=== PATIENT | female | born 1950 | race Caucasian/White ===

== ENCOUNTER 2017-05-27 19:46 | Observation (INO) ==
[2017-05-27 20:14] LABS: Basophils # 0.1 K/mcL (0.0-0.2); Basophils % 1.1 %; Eosinophils # 0.7 K/mcL (0.0-0.6); Eosinophils % 9.1 %; Hematocrit 37.2 % (35.3-44.9); Hemoglobin 11.9 g/dL (11.5-15.4); Immature Granulocytes % 0.1 % (0-4); Lymphocytes # 2.4 K/mcL (0.6-4.6); Lymphocytes % 34.1 %; Mean Corpuscular Hemoglobin 29.1 pg (28.0-33.3); Mean Platelet Volume 8.9 fL (9.4-12.4); Monocytes # 0.7 K/mcL (0.0-1.3); Monocytes % 9.8 %; Neutrophils # 3.3 K/mcL (1.6-8.9); Platelet Count 331 K/mcL (140-400); Red Blood Count 4.09 M/mcL (3.82-4.97); Red Cell Distribution Width 11.7 % (11.5-14.5); Segmented Neutrophils % 45.8 %
--- NOTE | 2017-05-27 20:17 | Emergency Department Note ---
Disposition Clinical Impression: Elevated troponin Dyspnea Qualifiers: Dyspnea type: shortness of breath Qualified Code(s): R06.02 - Shortness of breath Back pain Qualifiers: Back pain location: thoracic back pain Chronicity: acute Back pain laterality: midline Qualified Code(s): M54.6 - Pain in thoracic spine Disposition: Admitted As Inpatient Condition: Good SOB HPI - General Chief Complaint: ED Shortness of Breath/Dyspnea Stated Complaint: Back pain, SOB,facial numbness Time Seen by Provider: 05/27/17 19:52 Source: patient, EMS Mode of arrival: EMS Limitations: no limitations Nursing Notes Reviewed: Yes Vital Signs Reviewed: Yes - History of Present Illness 66-year-old female with history of hypertension, hyperlipidemia who presents to the ER with a chief complaint of back pain and shortness of breath. Patient reports that 15 minutes prior to arrival she developed stabbing back pain. She states she also felt short of breath during that time. She also felt right sided facial numbness. Patient called EMS and was brought for evaluation. She reports that within the last month she was seen for similar symptoms thought to be strokelike and was transferred to [facility]. She states that they told her she did not have a stroke but she had a left heart catheterization as well saying that "the bottom of her heart was abnormal". She denies any stent placement at that time. They did place her on aspirin. Patient denies any chest pain at this time. She denies nausea vomiting diarrhea. No history of cardiac stents, DVT or PE. Pt Subjective Complaint: shortness of breath Onset (ago): Just [employer] Severity: moderate Consistency/Duration: constant Improves with: nothing Worsens with: nothing Associated symptoms: Denies: chest pain, fever, cough, nausea/vomiting, syncope , abdominal pain Treatment prior to arrival: none Cough present: No Sputum production: No Sputum Amount: None - Related Data Home oxygen amount: none Home Medications Medication Instructions Recorded Confirmed Alprazolam [Xanax] 1 mg PO TID PRN 06/03/15 05/27/17 Cozaar 100 mg PO DAILY 06/03/15 05/27/17 Lexapro 10 mg PO DAILY 06/03/15 05/27/17 OxyCODONE/APAP 10/325 [Percocet 10 - 325 mg PO Q6H PRN 06/03/15 05/27/17 10/325] Aspirin [Lo-Dose Aspirin EC] 81 mg PO DAILY 05/27/17 05/27/17 Atorvastatin [Lipitor] 40 mg PO HS 05/27/17 05/27/17 Carvedilol 12.5 mg PO BID 05/27/17 05/27/17 Cyclobenzaprine [Flexeril] 10 mg PO TID 05/27/17 05/27/17 Previous Rx's Medication Instructions Recorded Fluticasone Propionate Nasal 2 spray NS DAILY #1 bottle 06/04/15 [Flonase] Allergies Allergy/AdvReac Type Severity Reaction Status Date / Time clarithromycin [From Biaxin] Allergy Hives Verified 06/03/15 20:34 diphenhydramine Allergy Hives Verified 06/03/15 20:34 [From Benadryl] methylprednisolone Allergy Hives Verified 06/03/15 20:34 [From Medrol] promethazine [From Phenergan] Allergy Hives Verified 06/03/15 20:34 sulfamethoxazole Allergy Hives Verified 06/03/15 20:34 [From Bactrim] trimethoprim [From Bactrim] Allergy Hives Verified 06/03/15 20:34 All systems ED: reviewed and negative except as stated. Constitutional: Denies: fever Cardiovascular: Denies: chest pain Respiratory: Reports: dyspnea. Denies: cough, wheezes Gastrointestinal: Denies: abdominal pain, nausea, vomiting, diarrhea Musculoskeletal: Reports: back pain. Denies: neck pain Past Medical History - Past Medical History Attestation: Yes The following information was validated with the patient. Source: patient Medical history: Reports: CHF, COPD, hypertension Surgical history: Reports: orthopedic, other, other Psychiatric history: Reports: anxiety [employer] history: Reports: no [employer] history - Social History Smoking Status: Current every day smoker Smokeless Tobacco Status: No Alcohol use: Reports: occasionally Drug use: Reports: none Physical Exam - General Limitations: no limitations General appearance: alert, in no apparent distress - Head Head exam: atraumatic, normocephalic, normal inspection - Eye Eye exam: Present: normal appearance, EOMI - ENT ENT exam: normal exam - Neck Neck exam: Present: normal inspection, full ROM. Absent: tenderness - Chest Chest inspection: Present: normal inspection, symmetric chest wall rise - Respiratory Respiratory exam: Present: normal lung sounds bilaterally - Cardiovascular Cardiovascular exam: Present: regular rate, normal rhythm, normal heart sounds - Abdominal Exam Abdominal exam: Present: soft, Non-Tender. Absent: tenderness - Extremities Exam Extremities exam: Present: normal inspection, full ROM - Expanded Upper Extremity Exam Shoulder exam: Present: normal inspection, full ROM Arm exam: Present: normal inspection, full ROM Elbow exam: Present: normal inspection, full ROM Forearm/Wrist exam: Present: normal inspection, full ROM Hand exam: Present: normal inspection, full ROM - Expanded Lower Extremity Exam Hip/Pelvis exam: Present: normal inspection, full ROM Upper leg exam: Present: normal inspection, full ROM Knee exam: Present: normal inspection, full ROM Lower leg exam: Present: normal inspection, full ROM Ankle exam: Present: normal inspection, full ROM Foot/toe exam: Present: normal inspection, full ROM Neurovascular/Tendon exam: Absent: motor deficit, sensory deficit - Back Exam Back exam: Present: normal inspection. Absent: tenderness - Neurological Exam Neurological exam: Present: alert, other (GCS 15. Nonfocal neurologic exam.) - Psychiatric Psychiatric exam: Present: normal affect, normal mood - Skin Skin exam: Present: warm, dry, intact, normal color Course Course Narrative: Patient seen and examined. Vital signs reviewed. We will obtain an EKG as well as labs including troponin. Disposition pending. - Reevaluation(s) Reevaluation #1: I discussed results of imaging and lab work with the patient. She reports she still feels short of breath and is having the back pain. Her troponin was elevated at 0.04. She is in agreement with being admitted to the hospital tonight. Vital Signs Temperature 98.9 F 05/27/17 19:48 Pulse Rate 76 05/27/17 19:48 Respiratory Rate 18 05/27/17 19:48 Blood Pressure 146/74 05/27/17 19:48 O2 Sat by Pulse Oximetry 97 05/27/17 19:48 Temperature 98.2 F 05/28/17 03:04 Pulse Rate 64 05/28/17 03:04 Respiratory Rate 16 05/28/17 03:04 Blood Pressure 133/74 05/28/17 03:04 O2 Sat by Pulse Oximetry 93 05/28/17 03:04 Oxygen Delivery Oxygen Delivery Room Air Shortness of Breath/Dyspnea - MDM Narrative Medical decision making narrative: 66-year-old female presents to the ER due to back pain, shortness of breath. Was recently admitted at [facility] for a neurologic workup. She reports that she had a left heart catheterization by what she describes at that time and was told that her heart was not functioning correctly in the lower portion. She did not have a stent placed at time. She has had back pain and shortness of breath this evening. EKG is nonischemic. Dissection study is negative. Her troponin is elevated at 0.04. We will give the patient an aspirin and admitted to the hospitalist service. - Lab Data Lab results reviewed: Yes I reviewed the patient's lab results. Result diagrams: 05/28/17 02:21 05/28/17 02:21 Lab Results 05/27/17 05/27/17 05/27/17 Range/Units 20:06 20:06 20:06 WBC 7.1 (4.3-11.1) K/mcL RBC 4.09 (3.82-4.97) M/mcL Hgb 11.9 (11.5-15.4) g/dL Hct 37.2 (35.3-44.9) % MCV 91.0 (83.0-100.0) fL MCH 29.1 (28.0-33.3) pg MCHC 32.0 (31.6-35.5) g/dL RDW 11.7 (11.5-14.5) % Plt Count 331 (140-400) K/mcL MPV 8.9 L (9.4-12.4) fL Immature Gran % 0.1 (0-4) % Seg Neutrophils % 45.8 % Lymphocytes % 34.1 % Monocytes % 9.8 % Eosinophils % 9.1 % Basophils % 1.1 % Neutrophils # 3.3 (1.6-8.9) K/mcL Lymphocytes # 2.4 (0.6-4.6) K/mcL Monocytes # 0.7 (0.0-1.3) K/mcL Eosinophils # 0.7 H (0.0-0.6) K/mcL Basophils # 0.1 (0.0-0.2) K/mcL Sodium 139 (136-145) mEq/L Potassium 3.8 (3.5-4.5) mEq/L Chloride 103 (98-109) mEq/L Carbon Dioxide 29 (19-29) mEq/L BUN 7 (7-20) mg/dL Creatinine 0.78 (0.57-1.11) mg/dL Est GFR ( Amer) > 60 (> 60) Est GFR (Non-Af Amer) > 60 (> 60) BUN/Creatinine Ratio 9 (6-26) Glucose 97 (70-99) mg/dL Calculated Osmolality 286 (280-300) Lactic Acid 1.3 (0.5-2.2) mmol/L Calcium 9.2 (8.6-10.8) mg/dL Troponin I (0-0.03) ng/mL B-Natriuretic Peptide (0-100) pg/mL 05/27/17 05/27/17 Range/Units 20:06 20:06 WBC (4.3-11.1) K/mcL RBC (3.82-4.97) M/mcL Hgb (11.5-15.4) g/dL Hct (35.3-44.9) % MCV (83.0-100.0) fL MCH (28.0-33.3) pg MCHC (31.6-35.5) g/dL RDW (11.5-14.5) % Plt Count (140-400) K/mcL MPV (9.4-12.4) fL Immature Gran % (0-4) % Seg Neutrophils % % Lymphocytes % % Monocytes % % Eosinophils % % Basophils % % Neutrophils # (1.6-8.9) K/mcL Lymphocytes # (0.6-4.6) K/mcL Monocytes # (0.0-1.3) K/mcL Eosinophils # (0.0-0.6) K/mcL Basophils # (0.0-0.2) K/mcL Sodium (136-145) mEq/L Potassium (3.5-4.5) mEq/L Chloride (98-109) mEq/L Carbon Dioxide (19-29) mEq/L BUN (7-20) mg/dL Creatinine (0.57-1.11) mg/dL Est GFR ( Amer) (> 60) Est GFR (Non-Af Amer) (> 60) BUN/Creatinine Ratio (6-26) Glucose (70-99) mg/dL Calculated Osmolality (280-300) Lactic Acid (0.5-2.2) mmol/L Calcium (8.6-10.8) mg/dL Troponin I 0.04 H* (0-0.03) ng/mL B-Natriuretic Peptide 105 H (0-100) pg/mL - Radiology Data Radiology results reviewed: Yes I reviewed the patient's radiology results. Chest X-Ray 05/27/17 19:58 IMPRESSION: No acute process. D/ / Martin Browning MD / Martin Browning MD Interpreting Provider: Martin Browning MD Abdomen/Pelvis CTA 05/27/17 21:10 IMPRESSION: 1. No acute abnormality in the chest, abdomen, or pelvis. Specifically, no evidence of aortic dissection. 2. Moderate emphysema. 3. Sigmoid diverticulosis. D/ / Khris Reeves MD / Khris Reeves MD Interpreting Provider: Khris Reeves MD Chest CTA 05/27/17 21:10 IMPRESSION: 1. No acute abnormality in the chest, abdomen, or pelvis. Specifically, no evidence of aortic dissection. 2. Moderate emphysema. 3. Sigmoid diverticulosis. D/ / Khris Reeves MD / Khris Reeves MD Interpreting Provider: Khris Reeves MD - EKG Data EKG attestation: Yes I reviewed and interpreted this EKG. EKG results narrative: EKG demonstrates sinus rhythm with first-degree AV block with a rate of 67 bpm. OR interval prolonged at 222. Left bundle branch block with a QRS duration of 145. ST-T wave changes in the lateral and inferior leads secondary to block likely. No ST elevations. No significant changes from previous EKG dated . S.B.A.R. - S.B.A.R. Situation: Demographics, MOA Background: Presenting Complaint, Relevant PMH, Meds, & Allergies Assessment: Vital Signs, Course and respsone to treatment, Exam Concerns, Patient/Family Expectation, Pertinant Lab Results, Outstanding Labs Recommendation: Barrier(s) to disposition, Recommendation based on pending studies, treatments, or consults Ursula Report Given to: Dr. Javier Vergara Repor Time: 00:22 Attestation Statement - Attestation Attestation: I examined this patient and my medical decision-making was reviewed with the Resident Physician. I agree with the documented findings, disposition and treatment plan as described except to the extent set forth below. Patient to the emergency department with a chief complaint of chest pain. Patient has pain in her shoulder blades were tender chest. Also, the upper blurry vision and facial tingling. No weakness. Patient recently seen and transferred to [facility] or strokelike symptoms and was diagnosed with CHF. Patient awake and alert on exam. Neurologically intact. NIH is 0. Plan. Cardiac workup is elevated troponin. CT is negative. Admitted for further cardiac workup.
[2017-05-27 20:26] LABS: BUN/Creatinine Ratio 9 (6-26); Blood Urea Nitrogen 7 mg/dL (7-20); Calcium 9.2 mg/dL (8.6-10.8); Carbon Dioxide 29 mEq/L (19-29); Chloride 103 mEq/L (98-109); Glucose 97 mg/dL (70-99); Osmolality,Calculated 286 (280-300); Potassium 3.8 mEq/L (3.5-4.5); Sodium 139 mEq/L (136-145); eGFR For African Americans > 60 (> 60); eGFR For Non-African Americans > 60 (> 60)
[2017-05-27] MEDS ORDERED: Aspirin 81 MG TAB.CHEW PO ONE (23:20)
--- NOTE | 2017-05-28 01:47 | Internal Med History&Physical ---
Date of Encounter: 05/28/17 Time of Encounter: 01:45 Assessment and Plan (1) COPD (chronic obstructive pulmonary disease) Current visit: Yes Status: Acute Inhaled albuterol and ipratropium as needed for shortness of breath or wheezing. No evidence of exacerbation. Qualifiers: COPD type: chronic bronchitis Chronic bronchitis type: unspecified Qualified Code(s): J42 - Unspecified chronic bronchitis (2) Tobacco abuse Current visit: No Status: Chronic I advised smoking cessation and provided counseling. (3) Anxiety Current visit: No Status: Chronic We will continue her home dose of Xanax. (4) Elevated troponin Current visit: Yes Status: Acute We will place patient in observation. Trend troponin. Provide court monitor. Obtain cardiac catheterization report from [facility]. Her troponin on a previous presentation 3 weeks ago was 0.00, troponin of 0.04 today is significantly elevated from her baseline. (5) Back pain Current visit: Yes Status: Acute Continue chest pain equivalent although the patient does have chronic back pain and she has been weaned off her Percocet. We will resume her Percocet per home dose. Trend troponin to rule out ACS. Qualifiers: Back pain location: thoracic back pain Chronicity: acute Back pain laterality: midline Qualified Code(s): M54.6 - Pain in thoracic spine Internal Medicine - H&P: HPI Chief complaint: Back pain Admitted From: Emergency Dept Plans for Post Hospital Care: Home History of present illness: Ms. Magana is a 66 year old female with past medical history of COPD, hypertension and chronic back pain who presented to the hospital for evaluation of back pain. She recently presented to our emergency department with symptoms of a stroke and was transferred to [facility] where she had an extensive workup including cardiac catheterization which per her report showed minimal blockage but no intervention was needed. She reports 8/10 aching and twisting like back pain in the left upper back started yesterday, worse with movement and not associated with shortness of breath or diaphoresis. Her troponin was mildly elevated and therefore she was referred for admission. She denies chest pain. Denies shortness of breath. She has chronic back pain and her family doctor started titrating down her chronic dose of Percocet. She reports chronic anxiety. A 10 point review of systems was otherwise negative Family history positive for coronary artery disease in both parents Social history: Smokes 10 cigarettes a day, uses alcohol occasionally and denies recreational drug use. Past Med Surg Social Fam HX - Past Medical History Medical history: CHF, COPD, hypertension Psychiatric history: anxiety - Past Surgical History Surgical History: orthopedic, other - Social History Smoking Status: Current every day smoker Smokeless Tobacco Status: No Alcohol use: occasionally Drug use: none - Family History Mother Family Member Ethnicity: Non- Living Status: Still Living Hx Family Cardiac Disorders: Yes (Unknown) Hx Family Endocrine Disorder: Yes (DM) Internal Medicine - H&P: Meds Alprazolam [Xanax] 1 mg PO TID PRN 06/03/15 [History] Cozaar 100 mg PO DAILY 06/03/15 [History] Lexapro 10 mg PO DAILY 06/03/15 [History] OxyCODONE/APAP 10/325 [Percocet 10/325] 10 - 325 mg PO Q6H PRN 06/03/15 [History ] Fluticasone Propionate Nasal [Flonase] 2 spray NS DAILY #1 bottle 06/04/15 [Rx] Aspirin [Lo-Dose Aspirin EC] 81 mg PO DAILY 05/27/17 [History] Atorvastatin [Lipitor] 40 mg PO HS 05/27/17 [History] Carvedilol 12.5 mg PO BID 05/27/17 [History] Cyclobenzaprine [Flexeril] 10 mg PO TID 05/27/17 [History] 3 Allergy/AdvReac Type Severity Reaction Status Date / Time clarithromycin [From Biaxin] Allergy Hives Verified 06/03/15 20:34 diphenhydramine Allergy Hives Verified 06/03/15 20:34 [From Benadryl] methylprednisolone Allergy Hives Verified 06/03/15 20:34 [From Medrol] promethazine [From Phenergan] Allergy Hives Verified 06/03/15 20:34 sulfamethoxazole Allergy Hives Verified 06/03/15 20:34 [From Bactrim] trimethoprim [From Bactrim] Allergy Hives Verified 06/03/15 20:34 All Systems PM: A 10-system review of systems was performed and is negative for pertinent findings except as documented above in the HPI. - Constitutional Vitals: Temp Pulse Resp BP Pulse Ox 97.9 F 67 12 155/85 96 05/28/17 00:47 05/28/17 00:47 05/28/17 00:47 05/28/17 00:47 05/28/17 00:47 - Eye Eye exam: Present: PERRL, conjuntiva pink, sclera anicteric Pupils: Present: PERRL - Respiratory Respiratory exam: Present: CTAB. Absent: accessory muscle use, rales, rhonchi, wheezes - Cardiovascular Cardiovascular exam: Present: RRR, +S1, +S2. Absent: diastolic murmur, gallop, rubs, systolic murmur - GI/Abdominal GI/Abdominal exam: Present: normal bowel sounds, soft, no peritoneal signs. Absent: distended, tenderness - Extremities Exam Extremities exam: Present: warm, radial pulses palpable and symmetrical. Absent : calf tenderness, cyanotic, pedal edema - Back Exam Back exam: Present: full ROM, normal inspection. Absent: paraspinal tenderness , tenderness, vertebral tenderness - Neurological Exam Neurological exam: Present: CN II-XII intact, oriented X3, no focal deficits. Absent: pronater drift, facial droop, speech deficit - Skin Skin exam: Present: dry, intact Internal Med - H&P Results - Labs CBC & Chem 7: 05/27/17 20:06 05/27/17 20:06 - EKG Data -: EKG Interpreted by Myself EKG shows normal: sinus rhythm, intervals, QRS complexes, ST-T waves
[2017-05-28] MEDS ORDERED: ALPRAZolam 1 MG TABLET PO PRN (01:54)
[2017-05-28] MEDS ORDERED: *HR* OxyCODONE/APAP 10/325 TABLET PO PRN (01:55)
[2017-05-28] MEDS ORDERED: *HR* Morphine 2 MG/ML SYRINGE IVP PRN (01:56)
[2017-05-28] MEDS ORDERED: Ibuprofen 400 MG TABLET PO PRN (01:56)
[2017-05-28] MEDS ORDERED: Acetaminophen 325 MG TABLET PO PRN (01:56)
[2017-05-28] MEDS ORDERED: Naloxone 0.4 MG/ML INJ IVP PRN (01:56)
[2017-05-28] MEDS ORDERED: Ipratropium/Albuterol Neb 3 ML IH PRN (02:00)
[2017-05-28 02:46] LABS: Basophils # 0.1 K/mcL (0.0-0.2); Basophils % 0.9 %; Eosinophils # 0.5 K/mcL (0.0-0.6); Eosinophils % 6.9 %; Hematocrit 35.3 % (35.3-44.9); Hemoglobin 11.3 g/dL (11.5-15.4); Immature Granulocytes % 0.3 % (0-4); Immature Platelets 1.6 % (1.1-6.1); Lymphocytes # 2.1 K/mcL (0.6-4.6); Lymphocytes % 30.7 %; Mean Corpuscular Hemoglobin 28.8 pg (28.0-33.3); Mean Corpuscular Volume 90.1 fL (83.0-100.0); Monocytes # 0.7 K/mcL (0.0-1.3); Monocytes % 10.2 %; Neutrophils # 3.6 K/mcL (1.6-8.9); Platelet Count 348 K/mcL (140-400); Red Blood Count 3.92 M/mcL (3.82-4.97); Red Cell Distribution Width 11.9 % (11.5-14.5)
[2017-05-28 02:57] LABS: BUN/Creatinine Ratio 10 (6-26); Blood Urea Nitrogen 7 mg/dL (7-20); Carbon Dioxide 28 mEq/L (19-29); Chloride 103 mEq/L (98-109); Glucose 95 mg/dL (70-99); Magnesium 1.9 mg/dL (1.6-2.6); Osmolality,Calculated 284 (280-300); Potassium 4.1 mEq/L (3.5-4.5); Sodium 138 mEq/L (136-145); eGFR For African Americans > 60 (> 60); eGFR For Non-African Americans > 60 (> 60)
[2017-05-28 07:44] VITALS: BP 148/77
[2017-05-28] MEDS ORDERED: Ketorolac 30 MG/ML VIAL IVP PRN (08:30)
[2017-05-28 08:58] LABS: Amphetamine Screen,Urine Negative ng/mL (Cutoff=1000); Barbiturate Screen,Urine Negative ng/mL (Cutoff=200); Benzodiazepines Screen,Urine Positive ng/mL (Cutoff=200); Cannabinoid Screen,Urine Positive ng/mL (Cutoff = 50); Cocaine Screen,Urine Negative ng/mL (Cutoff= 300); Opiate Screen,Urine Negative ng/mL (Cutoff=300); Phencyclidine Screen,Urine Negative ng/mL (Cutoff=25)
[2017-05-28] MEDS ORDERED: Fluticasone Propionate Nasal 50 MCG/SPRAY BOTTLE NS SCH (09:00)
[2017-05-28] MEDS ORDERED: Aspirin Enteric Coated 81 MG Tablet PO SCH (09:00)
--- NOTE | 2017-05-28 09:35 | Discharge Summary ---
Date of Encounter: 05/28/17 Time of Encounter: 08:30 - Discharge Diagnosis (1) Back pain Priority: Secondary Status: Chronic Comments: Patient's back pain had resolved on day of discharge. She denied shortness of breath above her normal time of discharge. Chest x-ray negative. Abdominal pelvic and chest CTA unremarkable. Troponins trended down. Follow-up outpatient Qualifiers: Back pain location: thoracic back pain Chronicity: acute Back pain laterality: midline Qualified Code(s): M54.6 - Pain in thoracic spine (2) Nonischemic cardiomyopathy Priority: Secondary Status: Chronic Comments: Per records from [facility], patient had a heart catheter that was unremarkable and did not require intervention. Ejection fraction 35%. She is scheduled to follow-up with [facility] cardiology in one month. Euvolemic on examination. Denied chest pain while admitted. (3) Narcotic dependence, in remission Priority: Primary Status: Acute Comments: Patient informed providers during this admission that she was on Percocet tens however in review of her orders report, her primary care provider had weaned her down to Percocet 5 mg and had weaned her off narcotics approximately 2 months prior to presentation. Her narcotics were then discontinued and she was sent home without narcotics and instructed to follow-up with her primary care provider for further chronic pain management. (4) Anxiety Priority: Secondary Status: Chronic Comments: Continue alprazolam (5) Elevated troponin Priority: Primary Status: Resolved (6) Dyspnea Priority: Primary Status: Resolved Qualifiers: Dyspnea type: shortness of breath Qualified Code(s): R06.02 - Shortness of breath; R06.00 - Dyspnea, unspecified; R06.01 - Orthopnea (7) COPD (chronic obstructive pulmonary disease) Priority: Secondary Status: Chronic Comments: No acute exacerbation. Patient denies shortness of breath above her norm and tolerated room air while admitted. Qualifiers: COPD type: chronic bronchitis Chronic bronchitis type: unspecified Qualified Code(s): J42 - Unspecified chronic bronchitis (8) Tobacco abuse Priority: Secondary Status: Chronic Comments: Declines smoking cessation counseling - Discharge Medications Home Medications: Alprazolam [Xanax] 1 mg PO TID PRN 06/03/15 [History] Cozaar 100 mg PO DAILY 06/03/15 [History] Lexapro 10 mg PO DAILY 06/03/15 [History] Fluticasone Propionate Nasal [Flonase] 2 spray NS DAILY #1 bottle 06/04/15 [Rx] Aspirin [Lo-Dose Aspirin EC] 81 mg PO DAILY 05/27/17 [History] Atorvastatin [Lipitor] 40 mg PO HS 05/27/17 [History] Carvedilol 12.5 mg PO BID 05/27/17 [History] Cyclobenzaprine [Flexeril] 10 mg PO TID 05/27/17 [History] Allergies/Adverse Reactions: 3 Allergy/AdvReac Type Severity Reaction Status Date / Time clarithromycin [From Biaxin] Allergy Hives Verified 06/03/15 20:34 diphenhydramine Allergy Hives Verified 06/03/15 20:34 [From Benadryl] methylprednisolone Allergy Hives Verified 06/03/15 20:34 [From Medrol] promethazine [From Phenergan] Allergy Hives Verified 06/03/15 20:34 sulfamethoxazole Allergy Hives Verified 06/03/15 20:34 [From Bactrim] trimethoprim [From Bactrim] Allergy Hives Verified 06/03/15 20:34 Date of admission: 05/28/17 00:26 Primary care physician: PCP NONE Discharging clinician: Delmi Dixon Anticipated date of discharge: 05/28/17 - Patient Status Disposition: Home, Self-Care Condition: Good Functional capacity at discharge: independent ambulation Overall status at discharge: patient is back to baseline - Discharge Instructions Follow Up With: Adonis Alexander MD [Partnered Physician] - Cardiology, [facility] [Other] Additional Instructions: Follow-up with primary care provider within 2-3 weeks. Follow-up with [facility] cardiology as scheduled - Diet and Activity Activity: increase activity as tolerated Diet: low salt diet Hospital course: Ms. Magana is a 66 year old female with past medical history of COPD, hypertension, nonischemic Placido myopathy, anxiety, chronic back pain, tobacco abuse. Patient presented to the hospital chief complaint of back pain. Patient recently presented to [facility]'s emergency Department with symptoms of a stroke and was transferred to [facility]. Records were obtained, she was admitted at [facility] from May 05 until May 10 and at which time, she had new left bundle branch block and an ejection fraction 35%. Left heart catheter was performed which revealed nonobstructive and minimal CAD and the patient was started on Coreg and diagnosed with nonischemic cardiomyopathy. For this visit, patient stating she had aching and twisting in her back and left upper back pain that started on the day prior to presentation. Worsened with movement and not associated with shortness of breath or diaphoresis. Workup in the emergency department notable for mildly elevated troponin is 0.04. Chest x-ray negative. Patient was admitted to the hospitalist service for further evaluation and management. Abdominal, pelvic, chest CTA all unremarkable for acute processes. Patient denied shortness of breath or chest pain throughout this admission and the elevated troponin trended back down. Low suspicion for acute coronary syndrome. She was euvolemic on examination during this admission. Of note, during this admission, patient stated that she was on Percocet tens however in review of her [facility] report, her primary care provider had weaned her down to Percocet 5 mg and had weaned her off narcotics approximately 2 months prior to presentation. Her narcotics were then discontinued and she was sent home without narcotics and instructed to follow- up with her primary care provider for further chronic pain management. She also has a follow-up appointment with [facility] cardiology in one month. She was discharged home in stable condition with close outpatient follow-up recommended. ITS Impressions Chest X-Ray 05/27/17 19:58 IMPRESSION: No acute process. D/ / Martin Browning MD / Martin Browning MD Interpreting Provider: Martin Browning MD Abdomen/Pelvis CTA 05/27/17 21:10 IMPRESSION: 1. No acute abnormality in the chest, abdomen, or pelvis. Specifically, no evidence of aortic dissection. 2. Moderate emphysema. 3. Sigmoid diverticulosis. D/ / Khris Reeves MD / Khris Reeves MD Interpreting Provider: Khris Reeves MD Chest CTA 05/27/17 21:10 IMPRESSION: 1. No acute abnormality in the chest, abdomen, or pelvis. Specifically, no evidence of aortic dissection. 2. Moderate emphysema. 3. Sigmoid diverticulosis. D/ / Khris Reeves MD / Khris Reeves MD Interpreting Provider: Khris Reeves MD - Time Spent with Patient Total time spent providing and/or coordinating discharge services: - Constitutional Vitals: Temp Pulse Resp BP Pulse Ox 98 F 72 16 148/77 93 05/28/17 07:34 05/28/17 07:34 05/28/17 07:34 05/28/17 07:34 05/28/17 07:34 General appearance: Present: A&O X 3, pleasant, no acute distress, answers questions appropriately - Head Head exam: Present: atraumatic, normocephalic - Eye Eye exam: Present: PERRL, conjuntiva pink, sclera anicteric Pupils: Present: PERRL - Neck Neck exam general surgery: Present: supple, trachea midline. Absent: lymphadenopathy - Respiratory Respiratory exam: Present: decreased breath sounds. Absent: accessory muscle use, rales, respiratory distress, rhonchi, wheezes - Cardiovascular Cardiovascular exam: Present: RRR, +S1, +S2. Absent: diastolic murmur, gallop, rubs, systolic murmur - GI/Abdominal GI/Abdominal exam: Present: normal bowel sounds, soft, no peritoneal signs. Absent: distended, tenderness - Extremities Exam Extremities exam: Present: warm, radial pulses palpable and symmetrical. Absent : calf tenderness, cyanotic, pedal edema - Neurological Exam Neurological exam: Present: alert, CN II-XII intact, normal gait, oriented X3, no focal deficits, strengths equal and symetr throughout. Absent: pronater drift, facial droop, speech deficit - Skin Skin exam: Present: dry, intact, normal color, warm
--- NOTE | 2017-05-29 10:11 | Electrocardiograph Report ---
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
== END 2017-05-28 12:03 | disposition home or self-care (01) ==
LOC: EMEROO 19:46 → 3BNU 19:46
PROVIDERS: ADMIT Internal Medicine; ATTEND Nurse Practitioner Family

== ENCOUNTER 2019-06-24 18:45 | Inpatient (IN) ==
[2019-06-24] MEDS ORDERED: Aspirin 81 MG TAB.CHEW PO ONE (19:09)
--- NOTE | 2019-06-24 19:10 | Emergency Department Note ---
Disposition Clinical Impression: Acute electrocardiogram changes Chest pain Qualifiers: Chest pain type: unspecified Qualified Code(s): R07.9 - Chest pain, unspecified Disposition: Admitted As Inpatient Time of Disposition: 19:30 Chest Pain HPI - General Chief Complaint: ED Chest Pain Stated Complaint: Near syncope Time Seen by Provider: 06/24/19 18:53 Source: patient Mode of arrival: ambulatory Limitations: no limitations Vital Signs Reviewed: Yes Nursing Notes Reviewed: Yes - History of Present Illness HPI Narrative: 68F with past medical history of COPD, CHF presents emergency department after a near syncopal episode and left-sided chest pain. The patient denies diaphoresis, nausea and vomiting. She does still feel weak and ill though. She states she has never had a heart attack or heart catheter before. She states s he was diagnosed with CHF when she was admitted to [facility] for a stroke. - Related Data Home Medications Medication Instructions Recorded Confirmed Aspirin [Lo-Dose Aspirin EC] 81 mg PO DAILY 05/27/17 06/24/19 Carvedilol 12.5 mg PO BID 05/27/17 06/24/19 Escitalopram [Lexapro] 10 mg PO DAILY 06/24/19 06/24/19 Loratadine [Claritin] 10 mg PO DAILY 06/24/19 06/24/19 Losartan Potassium 100 mg PO DAILY 06/24/19 06/24/19 Allergies Allergy/AdvReac Type Severity Reaction Status Date / Time clarithromycin [From Biaxin] Allergy Hives Verified 07/04/18 10:32 diphenhydramine Allergy Hives Verified 07/04/18 10:32 [From Benadryl] methylprednisolone Allergy Hives Verified 07/04/18 10:32 [From Medrol] promethazine [From Phenergan] Allergy Hives Verified 07/04/18 10:32 sulfamethoxazole Allergy Hives Verified 07/04/18 10:32 [From Bactrim] trimethoprim [From Bactrim] Allergy Hives Verified 07/04/18 10:32 All systems ED: reviewed and negative except as stated. Review of Systems: As Per HPI Constitutional: Denies: fever, chills, weakness Cardiovascular: Reports: chest pain, dyspnea on exertion, other (near syncope). Denies: palpitations, syncope Respiratory: Denies: cough, dyspnea, wheezes Gastrointestinal: Denies: abdominal pain, nausea, vomiting Musculoskeletal: Reports: back pain. Denies: neck pain Integumentary: Denies: rash Neurological: Denies: headache Endocrine: Denies: fatigue Chest Pain PMH - Past Medical History Medical history: Reports: CHF, COPD, hypertension, other Surgical history: Reports: orthopedic, other, other Psychiatric history: Reports: anxiety EDUCATION PROGRAM COORDINATOR history: Reports: no EDUCATION PROGRAM COORDINATOR history - Social History Smoking Status: Current every day smoker Alcohol use: Reports: none Drug use: Reports: none Physical Exam - General Limitations: no limitations General appearance: alert, in distress (appears uncomfortable) - Head Head exam: atraumatic, normocephalic - Eye Eye exam: Present: normal appearance, EOMI - Chest Chest inspection: Present: normal inspection. Absent: tenderness, rash - Respiratory Respiratory exam: Present: normal lung sounds bilaterally. Absent: wheezes - Cardiovascular Cardiovascular exam: Present: regular rate, normal rhythm - Abdominal Exam Abdominal exam: Present: soft, Non-Tender. Absent: distention, guarding, rebound, rigidity - Extremities Exam Extremities exam: Present: normal inspection. Absent: tenderness, pedal edema - Neurological Exam Neurological exam: Present: alert, oriented X3 - Psychiatric Psychiatric exam: Present: anxious - Skin Skin exam: Present: warm, dry, intact Course Vital Signs Temperature 98.0 F 06/24/19 18:58 Pulse Rate 73 06/24/19 18:58 Respiratory Rate 16 06/24/19 18:58 Blood Pressure 181/81 06/24/19 18:58 O2 Sat by Pulse Oximetry 99 06/24/19 18:58 Temperature 98.0 F 06/24/19 19:01 Pulse Rate 77 06/24/19 19:01 Respiratory Rate 20 06/24/19 19:01 Blood Pressure 181/81 06/24/19 19:01 O2 Sat by Pulse Oximetry 95 06/24/19 19:01 Oxygen Delivery Oxygen Delivery Room Air Chest Pain - MDM Narrative Medical decision making narrative: Patient presents emergency department with a near syncopal episode and left- sided chest pain. Patient was brought directly back to trauma room [address] worsening [address] segment elevations concerning for STEMI. STEMI alert was called at 1852. Spoke with Dr. Hdz at 1908 and the EKGs have been sent to him. STEMI workup is underway at this time. 1928 - Dr. Hdz will take the patient to the laboratory development technician. - Medical Records Medical records reviewed: Yes I reviewed the patient's medical records. - Lab Data Lab results reviewed: Yes I reviewed the patient's lab results. Result diagrams: 06/24/19 19:05 06/24/19 19:05 - Radiology Data Radiology results reviewed: Yes I reviewed the patient's radiology results. - EKG Data EKG attestation: Yes I reviewed and interpreted this EKG. EKG results narrative: EKG obtained at 1852 on 06/24/2019 Heart rate 70 bpm with intraventricular conduction delay. There is some ST segment elevation in the anterior leads which has increased from previous EKG dated 05/17/2017. Repeat EKG obtained at 1853 on 06/24/2019 Heart rate [address] segment elevation in the anterior leads from previous 1 minute ago. Heart Score - Score History: Slightly Suspicious EKG: Significant ST-Depression Age: Greater than 65 Risk Factors: Equal/Greater than 3 risk factor or history of atherosclerotic disease Critical Care Time Total Critical Care Time: 30 Attestation: Total critical care time as provided by myself excluding any procedures performed in evaluation and management of EKG changes and acute chest pain, was 30 minutes Attestation Statement - Attestation Attestation: I have seen this patient with the resident physician, I have personally evaluated this patient. I had reviewed the chart and document dictation by the resident physician and aM in agreement with the information documented by the resident physician. Please see documentation by the resident physician for complete chart including past medical history, family medical history, review of systems, current history and physical and laboratory and imaging studies. I was present for all procedures, provided direct supervision for all procedures, was present for the entirety of all procedures and provided direct guidance during the procedures. Please see documentation by the resident physician for any procedures performed. I have reviewed all interpretations of EKGs, and reviewed all EKGs performed on patient's as well. I have also reviewed reports of imaging as provided by radiology. Patient presented to the emergency department with chief complaint of chest pain started suddenly prior to arrival left-sided nature radiating towards her left shoulder with associated shortness of breath and just generalized weakness and not feeling well. Patient denies any headache or neck pain denies fevers chills cough or sputum production does endorse some left-sided jaw pain. Denies pain into her back tonight tearing or ripping sensation in eyes. Or abdomen. Patient denies any recent illnesses denies black or bloody stool denies any recent travel surgery or immobilization denies history of blood clots denies pleuritic pain denies unilateral leg pain or swelling. She reports that she has no history of coronary artery disease and cardiac catheterization when she was admitted for a stroke evaluation and CHF evaluation at [facility] 2 years ago. Upon arrival she is alert awake nontoxic in appearance, cranial nerves are intact oropharynx is normal lungs are clear heart is regular no obvious murmurs rubs or gallops abdomen soft nontender no evidence of DVT no JVD. EKG was obtained, which demonstrates some EKG changes from prior EKG from 2 years ago with more pronounced ST elevation in leads V1 and V2 and V3 but without [facility], with approximately [address] elevation in lead V3 and [address] elevation in V1 and V2, with borde rline elevations in aVR and aVL no reciprocal abnormality or ST depressions, does not truly meet scarrBossa criteria for acute ST elevation myocardial infarction but does demonstrate significant change in in the face of the patient's current history and story, I am concerned about potential for acute coronary disease, cardiology was immediately contacted and the cardiac catheterization lab was activated, we spoke with Dr. Hdz who states that he is in agreement that this does meet changes criteria but does not truly meet acute ST segment elevation myocardial infarction criteria but is in agreement based upon patient's current symptomatology that taking her to cardiac [employer] would be appropriate. He has requested the patient receive heparin, she had already been given aspirin and nitroglycerin. Patient was admitted to the hospital for further evaluation and management. Total critical care times run excluding any procedures performed was 30 minutes. Basic laboratory studies were all within acceptable limits.
[2019-06-24] MEDS ORDERED: *HR* Heparin 10,000 UNIT/10 ML VIAL ONE (19:14)
[2019-06-24] MEDS ORDERED: Heparin 1,000 UNITS/500 mL 500 ML ONE (19:14)
[2019-06-24] MEDS ORDERED: 0.9 % Sodium Chloride 2,000 ML ONE (19:14)
[2019-06-24] MEDS ORDERED: Iopamidol 125 ML INFUS..BTL ONE (19:14)
[2019-06-24] MEDS ORDERED: Nitroglycerin 1,000 MCG/10 ML VIAL IV ONE (19:14)
[2019-06-24] MEDS ORDERED: Nitroglycerin 25 MG/250 ML INFUS..BTL IVC SCH (19:15)
[2019-06-24] MEDS: Nitroglycerin 0.4 MG TAB.SUBL SL PRN ×2 (19:16→19:22)
[2019-06-24] MEDS ORDERED: *HR* Midazolam HCl 2 MG/2 ML VIAL ONE (19:19)
[2019-06-24] MEDS ORDERED: *HR* FentaNYL (PF) 100 MCG/2 ML VIAL ONE (19:19)
[2019-06-24] MEDS ORDERED: Tirofiban 12.5 MG/250ML 12.5 MG/250 ML BAG ONE (19:20)
[2019-06-24 19:21] LABS: Basophils # 0.1 K/mcL (0.0-0.2); Eosinophils # 0.6 K/mcL (0.0-0.6); Eosinophils % 7.8 %; Hematocrit 41.7 % (35.3-44.9); Hemoglobin 13.4 g/dL (11.5-15.4); Immature Granulocytes % 0.2 % (0-4); Mean Corpuscular HGB Conc 32.1 g/dL (31.6-35.5); Mean Corpuscular Hemoglobin 29.6 pg (28.0-33.3); Mean Corpuscular Volume 92.3 fL (83.0-100.0); Mean Platelet Volume 8.9 fL (9.4-12.4); Monocytes # 0.8 K/mcL (0.0-1.3); Monocytes % 9.5 %; Neutrophils # 4.6 K/mcL (1.6-8.9); Platelet Count 353 K/mcL (140-400); Red Blood Count 4.52 M/mcL (3.82-4.97); Red Cell Distribution Width 12.2 % (11.5-14.5); Segmented Neutrophils % 56.5 %; White Blood Count 8.1 K/mcL (4.3-11.1)
[2019-06-24 19:27] LABS: INR 0.9; Prothrombin Time 10.4 Seconds (9.4-12.1)
[2019-06-24] MEDS ORDERED: Aspirin 81 MG TAB.CHEW ONE (19:29)
[2019-06-24] MEDS ORDERED: *HR* Heparin 5,000 UNIT/ML VIAL IVP ONE (19:29)
[2019-06-24] MEDS ORDERED: Nitroglycerin 0.4 MG TAB.SUBL SL ONE (19:29)
[2019-06-24] MEDS ORDERED: *HR* Heparin 5,000 UNIT/ML VIAL IVP PRN ×2 (19:29)
[2019-06-24 19:30] LABS: Activated Partial Thrombo Time 32.1 Seconds (26.0-36.0)
[2019-06-24] MEDS ORDERED: Heparin 25,000 UNIT/250 ML D5W 25,000 UNIT/250 ML IV.SOLN IVC SCH (19:30)
[2019-06-24] MEDS ORDERED: *HR* Heparin 5,000 UNIT/ML VIAL ONE (19:32)
[2019-06-24 19:37] LABS: BUN/Creatinine Ratio 15 (6-26); Blood Urea Nitrogen 10 mg/dL (8-23); Calcium 9.3 mg/dL (8.6-10.3); Carbon Dioxide 31 mEq/L (23-29); Chloride 100 mEq/L (98-107); Glucose 118 mg/dL (70-105); Magnesium 1.7 mg/dL (1.6-2.6); Osmolality,Calculated 284 (280-300); Sodium 137 mEq/L (136-145); Troponin I < 0.03 ng/mL (< 0.04); eGFR For African Americans > 60 (> 60); eGFR For Non-African Americans > 60 (> 60)
[2019-06-24] MEDS ORDERED: *HR* Ticagrelor 90 MG TABLET ONE (20:10)
--- NOTE | 2019-06-24 20:43 | Invasive Diagnostic Lab Proc ---
Name: Debra Magana Date of Study: 06/24/2019 Date: 1950 Ht: 65.0in Medical Record#: [id number] Age: 68 Wt: 109.79lb Gender: Female BSA: 1.53 Order #: [id number] BMI: 18.27 Physicians Procedure Physician: Tristan Hdz MD Referring MD: Referring MD: Staff Name Position Time In Cesar Romeo RN Monitor 07:43 PM Bridgett Bullard RT (R) Scrub 07:43 PM William Muse RN Camp Boss 07:44 PM Procedures Performed Procedure L HRT ARTERY/VENTRICLE ANGIO PRQ CARD TERESA STENT W/ANGIO 1 VSL Pre-Procedure Checklist Pt not NPO for procedure and MD aware. Plan of Care Patient will tolerate the procedure without complications. Adequate level of comfort will be maintained. Hemodynamics will remain stable Patient will recover from procedure without complications. Respiratory function will be maintained. Cardiac rhythm will remain stable. Patient temperature will be maintained. Patient and/or family have verbalized understanding of the procedure. Patient Education Intravenous Access Time IV Size Location DC'd Fluid/Drip Rate Units RN 08:25 PM 20g 1 1/4" Patent On Arrival Rt Antecubital 08:25 PM 20g 1 1/4" Patent On Arrival Rt Arm Allergies trimethoprim sulfamethoxazole methylprednisolone *HR* PROMETHAZINE clarithromycin promethazine Sulfamethoxazole/Trimethopri NONE KNOWN NKA Biaxin Bactrim Vital Signs Time BP (mmHg) HR (bpm) O2 Sat. RR (bpm) LOC 07:44 PM / % 5 = Fully awake and oriented or at pre-proc level 07:44 PM / % 5 = Fully awake and oriented or at pre-proc level 07:44 PM 180 / 90 65 95 % 29 07:48 PM 154 / 75 65 93 % 14 07:53 PM 137 / 73 65 93 % 23 07:58 PM 148 / 77 64 90 % 30 08:03 PM 145 / 71 61 93 % 21 08:08 PM 144 / 74 61 91 % 16 Procedural Medications Time Medication Dose Units Method Given By 07:44 PM Oxygen 2 L/min nasal cannula William Muse RN 07:44 PM Versed 1 mg Intravenous William Muse RN 07:44 PM Fentanyl 50 mcg Intravenous William Muse RN 07:49 PM Lidocaine 2% 9 ml Subcutaneous 07:59 PM Aggrastat Bolus: 25 ml Intravenous William Muse RN 07:59 PM Aggrastat 12.5mg/250ml 9 ml/hr Intravenous William Muse RN 08:00 PM Heparin 500 units Intravenous William Muse RN 08:12 PM Brilinta 180 mg Orally William Muse RN ASA Classification: CLASS II- Mild systemic disease (i.e. well-controlled diabetes, hypertension, asthma, cigarette smoking) Sheron Score Preprocedure Postprocedure Activity 2- Moves 4 extremities sustained head lift Activity 2- Moves 4 extremities sustained head lift Circulation 2- SBP +/= 20 points of pre-anesthetic level Circulation 2- SBP +/= 20 points of pre-anesthetic level Consciousness 2- Awake and alert oriented x 3 Consciousness 2- Awake and alert oriented x 3 O2 Saturation 2- Able to maintain O2 satruation of 92% on room air O2 Saturation 2- Able to maintain O2 satruation of 92% on room air Respiratory 2- Able to deep breathe and cough well Respiratory 2- Able to deep breathe and cough well Total Score 10 Total Score 10 Contrast Agent: Isovue Diagnostic Contrast: 153 ml Total Contrast: 153 ml Fluoro Dose: 23 mGy Activated Clotting Time Time Seconds to Clot 08:00 PM 219 08:18 PM 248 Procedure Log Time Note Enter By 07:42 PM Vitals capture started with the following parameters, Patient=Adult, Interval=5 min, Initial Psjrzmka=866 mmHg, Deflation Rate=3 mmHg, Cuff placed on Right Arm 07:42 PM CathStat 07:43 PM Pt arrived to construction craft laborer 2 at 19:43 cedwards 07:43 PM Patient urgent from ER. cedwards 07:43 PM Cesar Romeo RN Position: Monitor Time in: 19:43 cedwards 07:44 PM Bridgett Bullard RT (R) Position: Scrub Time in: 19:43 cedwards 07:44 PM William Muse RN Position: Camp Boss Time in: 19:44 cedwards 07:44 PM Patient charges- Angio tray pack, Navilyst 3mm J, Pulse Oximetry and ACIST tubing and transducer cedwards 07:44 PM IV Supplies used: J loop Angio Cath. cedwards 07:44 PM Physician arrived 19:44 cedwards 07:44 PM ASA Class CLASS II- Mild systemic disease (i.e. well-controlled diabetes, hypertension, asthma, cigarette smoking) ced:44 PM Meet and lg completed :44 PM Sign in performed according to hospital policy. Informed consent was obtained. :44 PM Procedure start 19:44 :44 PM Time: 19:44 Oxygen on at 2 L/min per nasal cannula by William Muse RN :44 PM HR=65 bpm, KSZO=278/90 mmhg, SpO2=95.0 %, Resp=29 B/min, Comment=NSR :44 PM Time: :44 Versed 1 mg Intravenous Given by William Muse RN PM Time: :44 Fentanyl 50 mcg Intravenous Given by William Muse RN : PM Time: 19:44 Patient comfortable and pain free: No 44 PM Time: :44LOC: 5 = Fully awake and oriented or at pre-proc level ced 07:45 PM Chest pain rated at a 4 out of 10. 07:48 PM HR=65 bpm, DJON=040/75 mmhg, SpO2=93.0 %, Resp=14 B/min, Comment=NSR 07:49 PM Time out was performed according to hospital policy. Conscious sedation and anesthesia was achieved (see medication log with in this report above) ced 07:49 PM Time: 19:49 9 ml Lidocaine 2% to right groin Subcutaneous Given by 07:49 PM Micro-Introducer Kit utilized for sheath placement ced 07:50 PM Access obtained by percutaneous puncture. 6Fr 10cm Terumo Hobart sheath placed in right Femoral artery. [id number] ced 07:50 PM 0.035 145cm Navilyst 3mmJ wire [id number] ced 07:50 PM 5Fr FR 4 catheter inserted over the wire [facility] ced 07:51 PM Recorded Pressure: Ao, HR=65, Condition=Condition 1 (Aorta) Ao 112/64/84 07:51 PM RCA angiography performed in multiple views. ced 07:52 PM Catheter removed ced 07:52 PM Coronary Dominance: right ced 07:52 PM 5Fr FL 4 catheter inserted over the wire [facility] cedwards 07:52 PM LCA angiography performed in multiple views. cedwards 07:53 PM HR=65 bpm, RCQN=771/73 mmhg, SpO2=93.0 %, Resp=23 B/min, Comment=NSR 07:54 PM Recorded Pressure: Ao, HR=64, Condition=Condition 1 (Aorta) Ao 114/73/92 07:55 PM Catheter removed cedwards 07:58 PM HR=64 bpm, OMQP=870/77 mmhg, SpO2=90.0 %, Resp=30 B/min, Comment=NSR 07:58 PM 6Fr JR 4 Runway guide catheter was used to cannulate the PCI vessel successfully. reused? No cedwards 07:58 PM .014 [employer] [place] 190cm guide wire across target lesion- successful. reused? No cedwards 07:59 PM Inflation device was opened. cedwards 07:59 PM Time: 19:59 Aggrastat Bolus: 25 ml Intravenous Given by William Muse RN Aguilera pump cedwards 07:59 PM Time: 19:59 Aggrastat 12.5mg/250ml 9 ml/hr Intravenous Given by William Muse RN Aguilera pump cedwards 08:00 PM Time: 19:44LOC: 5 = Fully awake and oriented or at pre-proc level cedwards 08:00 PM Time: 19:44 Patient comfortable and pain free: Yes cedwards 08:00 PM At 20:00 the ACT was 219 seconds. cedwards 08:00 PM Time: 20:00 Heparin 500 units Intravenous Given by William Muse RN cedwards 08:00 PM Recorded Pressure: Ao, HR=61, Condition=Condition 1 (Aorta) Ao 137/64/90 08:01 PM Lesion found in Distal RCA. Pre Stenosis: 70 Pre AMIRA Flow: 3: Complete and Brisk Flow/Perfusion cedwards 08:03 PM 2.0 mm x 12 mm Emerge Monorail balloon across target lesion- successful. reused? No cedwards 08:03 PM HR=61 bpm, SIEF=015/71 mmhg, SpO2=93.0 %, Resp=21 B/min 08:04 PM Balloon inflated @ 6 kelly for 13 seconds cedwards 08:06 PM Balloon catheter removed intact. cedwards 08:06 PM 2.75mm x 20mm Synergy drug-eluting stent across target lesion- successful Lot #[id number] cedwards 08:08 PM Stent deployed @ 11 kelly for 10 seconds cedwards 08:08 PM Stent balloon reinflated @ 16 kelly for 11 seconds cedwards 08:08 PM HR=61 bpm, ZUNX=595/74 mmhg, SpO2=91.0 %, Resp=16 B/min, Comment=NSR 08:09 PM Stent delivery system removed intact. cedwards 08:09 PM Guide wire removed intact. cedwards 08:10 PM Guide catheter removed intact. cedwards 08:10 PM 5Fr Pigtail catheter inserted over the wire [facility] cedwards 08:10 PM Catheter crossed the aortic valve and was selectively placed in the left ventricle. Pressures recorded on pullback for left heart catheterization. cedwards 08:12 PM Recorded Pressure: LV, HR=54, Condition=Condition 1 (Left Ventricle) LV 175/-4/14 08:12 PM Recorded Pressure: LV, Ao, HR=62, Condition=Condition 1 (Left Ventricle) LV 171/-3/15, (Aorta) Ao 177/67/105 08:12 PM Bolus angiogram of left Ventricle complete: 10 ml/sec for a total of 20 mls cedwards 08:12 PM Catheter removed cedwards 08:12 PM Time: 20:12 Brilinta 180 mg Orally Given by William Muse RN cedwards 08:13 PM Procedure completed at 20:13 06/24/2019 cedwards 08:16 PM Did you address AMIRA flow and Dominance? YesCoronary Dominance: right cedwards 08:17 PM Sign out completed: Radiation Dose 180.87 mGy, 23.2 Gy/cm2 Fluoro Time: 5.8 Isovue 370 - 200ml contrast 153 ml given by Tristan Hdz MD. Complications: None. The patient was discharged out of the skilled laborer in stable condition. Sedation minutes 29. Cardiac Rehab Consult needed: Yes. Confirmed administered medications: Yes cedwards 08:17 PM Isovue 370 - 200ml,2 Bottle(s) used. cedwards 08:17 PM Sheath left in place to be pulled on floor/holding areaV+Pad cedwards 08:17 PM Estimated Blood Loss: minimal cedwards 08:17 PM Post ECG NSR cedwards 08:17 PM Post Blood Pressure 169/76 cedwards 08:17 PM Information taught Cardiac Cath, PCI, and V+ Pad cedwards 08:17 PM Education needs Procedure, Plan of Care, and Disease Process cedwards 08:17 PM Learning barriers :None cedwards 08:17 PM Education Methods Verbal cedwards 08:17 PM Education evaluation Able to repeat information cedwards 08:17 PM Site status No bleeding/ No Hematoma - Rt Groin as reported by Bridgett Bullard RT (R) at 20:17 cedwards 08:18 PM Plavix, Effient or Brilinta given Yes cedwards 08:18 PM Family placed in consult room. cedwards 08:18 PM Complications: None cedwards 08:18 PM At 20:18 the ACT was 248 seconds. cedwards 08:23 PM Report given to Kelton SANCHEZ Pt taken to ICU. 20:23 cedwards 08:29 PM Lesion found in Mid LAD. Pre Stenosis: 50 Pre AMIRA Flow: cedwards 08:29 PM Lesion found in Proximal Circumflex. Pre Stenosis: 60 Pre AMIRA Flow: cedwards 08:30 PM Lesion found in Ramus. Pre Stenosis: 65 Pre AMIRA Flow: cedwards Complications Complication None None Hemodynamics Pressures Site Systolic/A Wave Diastolic/V Wave Mean AO 112 64 84 AO 114 73 92 AO 137 64 90 LV 175 -4 14 LV 171 -3 15 AO 177 67 105 Post Procedure Information Blood Pressure: 169/76 mmHg Rhythm: NSR Post procedural instructions were given Closure Device Time Device Success/Fail 06/24/2019 8:19:00 PM Manual Compression Site Checks Time Location Status Staff Sheath In? Note 08:17 PM Rt Groin No bleeding/ No Hematoma Bridgett Bullard RT (R) Yes Pulses Time Site Pre-Procedure Post-Procedure Note 06/24/2019 8:28:00 PM Bilateral DP & PT 1+ 1+ Updated by Cesar Romeo RN on 06/24/2019 8:33:55 PM electronically signed on 06/24/2019 8:34:52 PM with status of Final
[2019-06-24] MEDS ORDERED: Tirofiban 12.5 MG/250ML 12.5 MG/250 ML BAG IVC SCH (20:45)
--- NOTE | 2019-06-24 20:46 | Cardiology History & Physical ---
Date of Encounter: 06/24/19 Time of Encounter: 20:44 Assessment and Plan (1) Acute coronary syndrome Current Visit: No Status: Ruled-out The assessment and plan as outlined above was discussed with the patient and/or family members who expressed understanding and agreement. All questions were answered. INferior ST changes suggestive of ISCHemia with sudden onset of unrelenting CP over last few hours. R/B/A d/w patient in regards to urgent LHC and sge agreed to proceed. History of Present Illness Chief complaint: Chest Pain HPI: Ms. Magana is a 68 year old female with known NICM and EF 35% LHC at [facility] 2 years ago with NOCAD here with acute onset of chest pain. ST changes suggestive of ischemia in the inferior leads. R/B/A d/w patient in regards to an LHC and she agreed to proceed. ACS meds administered by ER. CP described as Left pectoral and associated with SOB. Past Med Surg Social Fam HX - Past Medical History Medical history: CHF, COPD, hypertension, other Psychiatric history: anxiety - Past Surgical History Surgical History: orthopedic, other, other Additional surgical history: Foot, Elbow, Bilateral Oopherectomy, Tubal - Social History Smoking Status: Current every day smoker Smokeless Tobacco Status: No Alcohol use: none Drug use: none - Family History Mother Family Member Ethnicity: Non- Living Status: Still Living Hx Family Cardiac Disorders: Yes (Unknown) Hx Family Endocrine Disorder: Yes (DM) Medications and Allergies Aspirin [Lo-Dose Aspirin EC] 81 mg PO DAILY 05/27/17 [History] Carvedilol 12.5 mg PO BID 05/27/17 [History] Escitalopram [Lexapro] 10 mg PO DAILY 06/24/19 [History] Loratadine [Claritin] 10 mg PO DAILY 06/24/19 [History] Losartan Potassium 100 mg PO DAILY 06/24/19 [History] Allergy/AdvReac Type Severity Reaction Status Date / Time clarithromycin [From Biaxin] Allergy Hives Verified 07/04/18 10:32 diphenhydramine Allergy Hives Verified 07/04/18 10:32 [From Benadryl] methylprednisolone Allergy Hives Verified 07/04/18 10:32 [From Medrol] promethazine [From Phenergan] Allergy Hives Verified 07/04/18 10:32 sulfamethoxazole Allergy Hives Verified 07/04/18 10:32 [From Bactrim] trimethoprim [From Bactrim] Allergy Hives Verified 07/04/18 10:32 All Systems Review: The remainder of the systems were reviewed and are negative Physical Examination Vital Signs, Last 4 Hours Temp Pulse Resp BP Pulse Ox 06/24/19 19:25 98.0 F 77 20 181/81 95 06/24/19 19:10 133/82 06/24/19 19:01 98.0 F 77 20 181/81 95 06/24/19 18:59 77 20 95 06/24/19 18:58 98.0 F 73 16 181/81 99 General: Conversant, No Apparent Distress HEENT: Atraumatic, Normocephaly, Mucus Membranes Moist Neck: No JVD, Normal carotid pulses Cardiac: Reg Rate and Rhythm, Normal S1 and S2, No Murmur Lungs: Normal Breath Sounds, No Wheeze, Rales, Rhonchi Neuro: Alert and responsive, No focal deficits noted Abdomen: Soft, Non-Tender Skin: No rashes noted on visualized skin Musculoskeletal: No Chest Wall Tenderness Extremities: No Clubbing, No Cyanosis, No Edema, Normal Pulses Results 06/24/19 19:05 06/24/19 19:05 Lab Results 06/24/19 06/24/19 06/24/19 19:05 19:05 19:05 WBC 8.1 Hgb 13.4 Hct 41.7 Plt Count 353 INR 0.9 APTT 32.1 Sodium 137 Potassium 4.0 Chloride 100 Carbon Dioxide 31 H BUN 10 Creatinine 0.65 Glucose 118 H Calcium 9.3 Magnesium 1.7 Troponin I < 0.03
[2019-06-24] MEDS: *HR* Ticagrelor 90 MG TABLET PO SCH (21:15)
[2019-06-24] MEDS ORDERED: *HR* Atropine Sulfate 1 MG/10 ML SYRINGE ONE (21:35)
[2019-06-25 04:30] LABS: Hematocrit 38.1 % (35.3-44.9); Hemoglobin 12.6 g/dL (11.5-15.4)
[2019-06-25 04:52] LABS: BUN/Creatinine Ratio 20 (6-26); Blood Urea Nitrogen 10 mg/dL (8-23); eGFR For African Americans > 60 (> 60); eGFR For Non-African Americans > 60 (> 60)
[2019-06-25 04:56] LABS: Troponin I 0.09 ng/mL (< 0.04)
[2019-06-25] MEDS: *HR* Ticagrelor 90 MG TABLET PO SCH ×2 (08:54→20:16)
[2019-06-25] MEDS ORDERED: Loratadine 10 MG TABLET PO SCH (09:00)
[2019-06-25] MEDS ORDERED: Aspirin 81 MG TAB.CHEW PO SCH (09:00)
--- NOTE | 2019-06-25 10:11 | Cardiology Progress Note ---
Date of Encounter: 06/25/19 Time of Encounter: 09:30 Assessment and Plan (1) Acute coronary syndrome Current Visit: No Status: Ruled-out Per cardiology: -Admitted with chest pain and had inferior ST changes suggestive of ischemia. -Patient underwent LHC yesterday with prelim report reviewed with PCI to distal RCA with TERESA. Has remaining moderate CAD. -On asa, brilinta, statin, BB. -TTE pending. Last TTE 10/2018 with LVEF 40%. -Currently chest pain free. -Right groin without hematoma. -Continue dual anti-platelet therapy uninterrupted for at least one year, states understanding. -Will repeat TTE. -Will transfer out of ICU today. (2) Systolic CHF Current Visit: Yes Status: Acute Per cardiology: -Acute on chronic systolic CHF. -Reports NYHA class III symptoms. -CUrrently on O2, not normally on at home. -Chest x-ray with CHF. -Known EF of 40%. -Will give IV lasix x1 today. -Strict i/os, fluid restriction, daily weights. -Will continue to monitor. Qualifiers: Heart failure chronicity: acute on chronic Qualified Code(s): I50.23 - Acute on chronic systolic (congestive) heart failure (3) Cardiomyopathy Current Visit: Yes Status: Chronic Per cardiology: -Known cardiomyopathy. -Last TTE as above. -Current TTE pending. -ON BB and ARB. -Being diuresed today. -Continue current medical therapy. Qualifiers: Cardiomyopathy type: unspecified Qualified Code(s): I42.9 - Cardiomyopathy, unspecified (4) Tobacco abuse Current Visit: No Status: Chronic Per cardiology: -Known tobacco abuse. -Smoking cessation education reviewed with patient. Discussion w patient/family: The assessment and plan as outlined above was discussed with the patient who expressed understanding and agreement. All questions were answered. Thank you for involving us in the care of your patient. Please call with any questions. Discussed and reviewed with . Subjective Principal diagnosis: ACS Interval history: Patient denies chest pain. Reports some mild shortness of breath. Currently on O2, not normally on at home. Objective Vital Signs, Last 4 Hours Temp Pulse Resp BP Pulse Ox 06/25/19 08:00 64 14 167/90 98 06/25/19 07:47 97.9 F 06/25/19 07:00 66 16 174/79 95 General: Conversant, No Apparent Distress HEENT: Atraumatic, Normocephaly, Mucus Membranes Moist Neck: No JVD, Normal carotid pulses Cardiac: Reg Rate and Rhythm, Normal S1 and S2, No Murmur Lungs: Other (Lung sounds diminished throughout. ) Neuro: Alert and responsive, No focal deficits noted Abdomen: Soft, Non-Tender Skin: No rashes noted on visualized skin, Other (Right groin access site without hematoma. ) Musculoskeletal: No Chest Wall Tenderness Extremities: No Clubbing, No Cyanosis, No Edema, Normal Pulses Results 06/25/19 04:00 06/25/19 04:00 Lab Results Impressions Chest X-Ray 06/24/19 20:42 IMPRESSION: Findings suggest congestive heart failure D/ / Chirag Melo MD / Chirag Melo MD Interpreting Provider: Chirag Melo MD Active Medications Aspirin (Aspirin) 81 mg PO DAILY [facility] Stop: 12/25/19 09:01 Last Admin: 06/25/19 08:54 Dose: 81 mg Documented by: Carvedilol (Coreg) 12.5 mg PO BID [facility] Stop: 12/25/19 09:01 Last Admin: 06/25/19 08:54 Dose: 12.5 mg Documented by: Escitalopram Oxalate (Lexapro) 10 mg PO DAILY [facility] Stop: 12/25/19 09:01 Last Admin: 06/25/19 08:53 Dose: 10 mg Documented by: Loratadine (Claritin) 10 mg PO DAILY [facility]; Protocol Stop: 12/25/19 09:01 Last Admin: 06/25/19 08:53 Dose: 10 mg Documented by: Losartan Potassium (Cozaar) 100 mg PO DAILY [facility] Stop: 12/25/19 09:01 Last Admin: 06/25/19 08:53 Dose: 100 mg Documented by: Nitroglycerin (Nitroglycerin) 0.4 mg SL [id number] PRN PRN Reason: Chest pain Last Admin: 06/24/19 19:22 Dose: 0.4 mg Documented by: Ticagrelor (Brilinta) 90 mg PO BID [facility] Stop: 12/24/19 21:01 Last Admin: 06/25/19 08:54 Dose: 90 mg Documented by: Laboratory Tests 06/25/19 06/25/19 04:00 04:00 Hgb 12.6 Creatinine 0.50 L - Imaging and Cardiology Chest Xray: report reviewed Echo: report reviewed Cardiac cath: report reviewed Consult Discharge Plan - Plan Referrals: Lidia Mccann, [employer]TR[employer] PRESS OPERATOR [Primary Care Provider] -
[2019-06-25] MEDS ORDERED: Furosemide 40 MG/4 ML VIAL IVP ONE ×2 (10:23→11:06)
[2019-06-25] MEDS ORDERED: Nitroglycerin 0.4 MG TAB.SUBL SL PRN (11:06)
[2019-06-25] MEDS ORDERED: Saline Nasal Spray 44 ML BOTTLE NS PRN (11:57)
--- NOTE | 2019-06-25 16:15 | Electrocardiograph Report ---
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
--- NOTE | 2019-06-25 16:16 | Electrocardiograph Report ---
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
[2019-06-25] MEDS: *HR* Heparin 5,000 UNIT/ML VIAL SQ SCH (16:48)
[2019-06-26] MEDS: *HR* Heparin 5,000 UNIT/ML VIAL SQ SCH ×2 (05:07→18:35)
[2019-06-26 08:57] LABS: Basophils # 0.1 K/mcL (0.0-0.2); Basophils % 1.2 %; Eosinophils # 0.3 K/mcL (0.0-0.6); Eosinophils % 4.5 %; Hematocrit 42.2 % (35.3-44.9); Hemoglobin 13.9 g/dL (11.5-15.4); Immature Granulocytes % 0.3 % (0-4); Lymphocytes # 1.4 K/mcL (0.6-4.6); Lymphocytes % 19.6 %; Mean Corpuscular HGB Conc 32.9 g/dL (31.6-35.5); Mean Corpuscular Hemoglobin 29.6 pg (28.0-33.3); Mean Platelet Volume 8.7 fL (9.4-12.4); Monocytes # 0.6 K/mcL (0.0-1.3); Monocytes % 7.7 %; Neutrophils # 4.9 K/mcL (1.6-8.9); Platelet Count 317 K/mcL (140-400); Red Blood Count 4.69 M/mcL (3.82-4.97); Red Cell Distribution Width 12.4 % (11.5-14.5); Segmented Neutrophils % 66.7 %; White Blood Count 7.3 K/mcL (4.3-11.1)
[2019-06-26 09:15] LABS: BUN/Creatinine Ratio 18 (6-26); Blood Urea Nitrogen 10 mg/dL (8-23); Calcium 9.1 mg/dL (8.6-10.3); Carbon Dioxide 25 mEq/L (23-29); Chloride 99 mEq/L (98-107); Glucose 147 mg/dL (70-105); Magnesium 1.7 mg/dL (1.6-2.6); Osmolality,Calculated 282 (280-300); Potassium 3.6 mEq/L (3.5-5.1); Sodium 135 mEq/L (136-145); eGFR For African Americans > 60 (> 60); eGFR For Non-African Americans > 60 (> 60)
--- NOTE | 2019-06-26 11:17 | Cardiology Progress Note ---
Date of Encounter: 06/26/19 Time of Encounter: 09:45 Assessment and Plan (1) Acute coronary syndrome Current Visit: No Status: Ruled-out Per cardiology: -Admitted with chest pain and had inferior ST changes suggestive of ischemia. -Patient underwent LHC with prelim report reviewed with PCI to distal RCA with TERESA. Has remaining moderate CAD. -On asa, brilinta, statin, BB. -TTE with LVEF 40%, global hypokineis. Last TTE 10/2018 with LVEF 40%. -Currently chest pain free. -Right groin access site without hematoma, mild ecchymosis noted, -of note, had idoventricular rhythm overnight. BB has been increased. -Continue dual anti-platelet therapy uninterrupted for at least one year, states understanding. -Increase BB. -Will continue to monitor. -Potential discharge in am. (2) Systolic CHF Current Visit: Yes Status: Acute Per cardiology: -Acute on chronic systolic CHF. -Reports NYHA class II symptoms. -Currently on O2, not normally on at home. -Chest x-ray with CHF. -Known EF of 40%. -Was given IV lasix yesterday, reports symptoms improved today. Now off O2. -Will start oral lasix. -Strict i/os, fluid restriction, daily weights. -Will continue to monitor. Qualifiers: Heart failure chronicity: acute on chronic Qualified Code(s): I50.23 - Acute on chronic systolic (congestive) heart failure (3) Cardiomyopathy Current Visit: Yes Status: Chronic Per cardiology: -Known cardiomyopathy. -Last TTE as above. -Current TTE with LVEF 40%. -ON BB and ARB. -Being diuresed today. -BB has been increased. Qualifiers: Cardiomyopathy type: unspecified Qualified Code(s): I42.9 - Cardiomyopathy, unspecified (4) Essential hypertension Current Visit: Yes Status: Acute Per cardiology: -Known HTN -BP hypertensive. -ON BB and ARB. -Will increase BB. -Will continue to monitor. (5) Tobacco abuse Current Visit: No Status: Chronic Per cardiology: -Known tobacco abuse. -Smoking cessation education reviewed with patient. Discussion w patient/family: The assessment and plan as outlined above was discussed with the patient who expressed understanding and agreement. All questions were answered. Thank you for involving us in the care of your patient. Please call with any questions. Discussed and reviewed with . Subjective Principal diagnosis: ACS Interval history: Patient denies chest pain. Reports shortness of breath improved today. Objective Vital Signs Temperature 98.0 F 06/24/19 18:58 Pulse Rate 73 06/24/19 18:58 Respiratory Rate 16 06/24/19 18:58 Blood Pressure 181/81 06/24/19 18:58 O2 Sat by Pulse Oximetry 99 06/24/19 18:58 Temperature 97.9 F 06/26/19 03:44 Pulse Rate 74 06/26/19 03:44 Respiratory Rate 16 06/26/19 03:44 Blood Pressure 147/82 06/26/19 03:44 O2 Sat by Pulse Oximetry 94 06/26/19 03:44 Oxygen Delivery Oxygen Delivery Room Air General: Conversant, No Apparent Distress HEENT: Atraumatic, Normocephaly, Mucus Membranes Moist Neck: No JVD, Normal carotid pulses Cardiac: Reg Rate and Rhythm, Normal S1 and S2, No Murmur Lungs: Normal Breath Sounds, No Wheeze, Rales, Rhonchi Neuro: Alert and responsive, No focal deficits noted Abdomen: Soft, Non-Tender Skin: No rashes noted on visualized skin, Other (Right groin access site with mild ecchymosis, no hematoma. ) Musculoskeletal: No Chest Wall Tenderness Extremities: No Clubbing, No Cyanosis, No Edema, Normal Pulses Results 06/26/19 08:40 06/26/19 08:40 Lab Results Impressions Echocardiogram 06/26/19 08:17 Impressions: LVEF 40%. Normal LV chamber size. Mild concentric left ventricular hypertrophy. Global left ventricular systolic dysfunction. Atypical septal motion consistent with bundle branch block. Mild left ventricular diastolic dysfunction. Normal right ventricular structure and function. Mild aortic regurgitation. Unable to estimate RVSP due to lack of TR jet. Left Ventricular Wall Motion: Rest Echo Findings The apex, apical inferior, mid inferior, basal inferior, apical anterior, mid anterior, basal anterior, apical septal, mid inferior septal, basal inferior septal, apical lateral, mid anterior lateral, basal anterior lateral, mid anterior septal, mid inferior lateral, basal anterior septal and basal inferior lateral [place] were hypokinetic. Findings: Study Quality * Technically adequate exam. ECG Findings * Sinus rhythm with BBB. Left Ventricle * LVEF 40%. * Normal LV chamber size. * Mild concentric left ventricular hypertrophy. * Global left ventricular systolic dysfunction. * Atypical septal motion consistent with bundle branch block. * Mild left ventricular diastolic dysfunction. Right Ventricle * Normal right ventricular structure and function. Left Atrium * Normal left atrial size. Right Atrium * Normal right atrial size. Interatrial Septum * Interatrial septum not well evaluated. Aortic Valve * Trileaflet aortic valve. * Moderately sclerotic aortic valve leaflets. * Mild aortic regurgitation. * No aortic stenosis. Mitral Valve * Mildly thickened mitral valve leaflets. * No mitral regurgitation. * No mitral stenosis. Tricuspid Valve * Normal tricuspid valve structure and function. * No tricuspid regurgitation. * Unable to estimate RVSP due to lack of TR jet. Pulmonic Valve * Normal pulmonic valve structure and function. * Trace pulmonic regurgitation. Pericardium * There is a trivial pericardial effusion present. Aorta * Normally sized aortic root. IVC * Normal IVC dimensions and inspiratory collapse. Pulmonary Artery * Normal visualized portions of the main pulmonary artery. Active Medications Aspirin (Aspirin) 81 mg PO DAILY [facility] Stop: 12/25/19 09:01 Atorvastatin Calcium (Lipitor) 80 mg PO HS [facility] Stop: 12/26/19 21:01 Carvedilol (Coreg) 25 mg PO BIDWM [facility]; Protocol Stop: 12/26/19 08:15 Escitalopram Oxalate (Lexapro) 10 mg PO DAILY [facility] Stop: 12/25/19 09:01 Heparin Sodium (Porcine) (Heparin) 5,000 unit SQ Q12HCO [facility]; Protocol Stop: 12/25/19 18:01 Last Admin: 06/26/19 05:07 Dose: 5,000 unit Documented by: Loratadine (Claritin) 10 mg PO DAILY [facility]; Protocol Stop: 12/25/19 09:01 Losartan Potassium (Cozaar) 100 mg PO DAILY [facility] Stop: 12/25/19 09:01 Nitroglycerin (Nitroglycerin) 0.4 mg SL Q5MPRN PRN PRN Reason: Chest pain Sodium Chloride ([place] Nasal [place]) 2 spray NS Q2H PRN PRN Reason: Congestion Stop: 12/25/19 11:58 Last Admin: 06/25/19 12:52 Dose: 2 spray Documented by: Ticagrelor (Brilinta) 90 mg PO BID [facility] Stop: 12/24/19 21:01 Last Admin: 06/25/19 20:16 Dose: 90 mg Documented by: Laboratory Tests 06/26/19 06/26/19 08:40 08:40 Hgb 13.9 Creatinine 0.57 L - Imaging and Cardiology Chest Xray: report reviewed Echo: report reviewed Cardiac cath: report reviewed - EKG Interpretation EKG results cardiology: other (Telemetry reveiwed with average HR previous 12 hours noted to be 70, SR. Idioventricular rhythm noted overnight.) Consult Discharge Plan - Plan Referrals: Lidia Mccann, RETAIL SECURITY PROFESSIONAL [Primary Care Provider] -
[2019-06-26] MEDS: Aspirin 81 MG TAB.CHEW PO SCH (12:01)
[2019-06-26] MEDS: Loratadine 10 MG TABLET PO SCH (12:02)
[2019-06-26] MEDS: *HR* Ticagrelor 90 MG TABLET PO SCH ×2 (12:02→19:43)
[2019-06-26] MEDS: Magnesium Oxide 400 MG TABLET PO SCH (16:02)
--- NOTE | 2019-06-26 21:37 | Electrocardiograph Report ---
[address] [place], [place] [address] Test Date: 2019-06-25 Pat Name: Debra Magana Department: 112 Room: 2A22 Gender: Transfer Coordinator: : 1950 Requested By: Tacos Cortez Order Number: [id number] Reading MD: Ingrid Tucker Measurements Intervals [place] Rate: 70 P: 66 [place]: 207 QRS: -56 QRSD: 143 T: 108 QT: 445 QTc: 465 Interpretive Statements SINUS RHYTHM MARKED LEFT AXIS DEVIATION LEFT BUNDLE BRANCH BLOCK Electronically Signed On 06-26-2019 21:36:12 EDT by Ingrid Tucker
[2019-06-27] MEDS: *HR* Heparin 5,000 UNIT/ML VIAL SQ SCH (05:05)
[2019-06-27] MEDS: Magnesium Oxide 400 MG TABLET PO SCH (08:20)
[2019-06-27] MEDS: Loratadine 10 MG TABLET PO SCH (08:20)
[2019-06-27] MEDS: *HR* Ticagrelor 90 MG TABLET PO SCH (08:21)
[2019-06-27] MEDS: Aspirin 81 MG TAB.CHEW PO SCH (08:21)
[2019-06-27] MEDS ORDERED: Furosemide 20 MG TABLET PO SCH (09:00)
--- NOTE | 2019-06-27 11:20 | Discharge Summary ---
- NOTES TO OUTPATIENT PROVIDER Notes to Outpatient Provider: Admitted with ACS. Date of Encounter: 06/27/19 Time of Encounter: 11:15 - Discharge Diagnosis (1) Acute coronary syndrome Priority: Primary Status: Resolved Comments: Admitted with ACS (2) Systolic CHF Priority: Secondary Status: Acute Comments: Was diuresed Qualifiers: Heart failure chronicity: acute on chronic Qualified Code(s): I50.23 - Acute on chronic systolic (congestive) heart failure (3) Cardiomyopathy Priority: Secondary Status: Chronic Comments: Known cardiomyopathy. Qualifiers: Cardiomyopathy type: unspecified Qualified Code(s): I42.9 - Cardiomyopathy, unspecified (4) Essential hypertension Priority: Secondary Status: Chronic Comments: Known HTN (5) Tobacco abuse Priority: Secondary Status: Chronic Comments: Known tobacco abuse - Hospital Course Hospital course: Ms. 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 Has remaining moderate CAD. On asa, brilinta, statin, bb. Educated on dual anti-platelet therapy uninterrupted for at least one year, states understanding. Brilinta assistance card given to patient. Patient educated to call cardiology for any issues with medications at pharmacy. Known cardiomyopathy, LVEF 40% with global hypokinesis. ON BB and ARB. Patient with volume overloaded on admission, was diuresed. Started on oral lasix. CHF education reviewed with patient and educated when to call cardiology. Discussed switch ARB to entresto, however entresto requires a PA. PA sent per cardiology office and can switch to entresto outpatient. RIght groin access site without ecchymosis or hematoma. Right groin access site management education reviewed with patient, nneka understanding. Patient is a known smoker, smoking cessation education reviewed with patient. Patient is being prepped for discharge home in stable condition. Patient will follow with [facility], follow up set. - Time Spent with Patient Total time spent providing and/or coordinating discharge services: Less than 30 minutes - Discharge Medications Prescriptions: New Ticagrelor [Brilinta] 90 mg PO BID #60 tablet Carvedilol [Coreg] 25 mg PO BIDWM #60 tablet Furosemide [Lasix] 20 mg PO DAILY #30 tablet Atorvastatin [Lipitor] 80 mg PO HS #30 tablet Nitroglycerin 0.4 mg SL Q5MPRN PRN #15 tab.subl PRN Reason: Chest pain Continued Aspirin [Lo-Dose Aspirin EC] 81 mg PO DAILY Loratadine [Claritin] 10 mg PO DAILY Escitalopram [Lexapro] 10 mg PO DAILY Losartan Potassium 100 mg PO DAILY Discontinued Carvedilol 12.5 mg PO BID Home Medications: Aspirin [Lo-Dose Aspirin EC] 81 mg PO DAILY 05/27/17 [History] Escitalopram [Lexapro] 10 mg PO DAILY 06/24/19 [History] Loratadine [Claritin] 10 mg PO DAILY 06/24/19 [History] Losartan Potassium 100 mg PO DAILY 06/24/19 [History] Atorvastatin [Lipitor] 80 mg PO HS #30 tablet 06/27/19 [Rx] Carvedilol [Coreg] 25 mg PO BIDWM #60 tablet 06/27/19 [Rx] Furosemide [Lasix] 20 mg PO DAILY #30 tablet 06/27/19 [Rx] Nitroglycerin 0.4 mg SL Q5MPRN PRN #15 tab.subl 06/27/19 [Rx] Ticagrelor [Brilinta] 90 mg PO BID #60 tablet 06/27/19 [Rx] Allergies/Adverse Reactions: Allergy/AdvReac Type Severity Reaction Status Date / Time clarithromycin [From Biaxin] Allergy Hives Verified 07/04/18 10:32 diphenhydramine Allergy Hives Verified 07/04/18 10:32 [From Benadryl] methylprednisolone Allergy Hives Verified 07/04/18 10:32 [From Medrol] promethazine [From Phenergan] Allergy Hives Verified 07/04/18 10:32 sulfamethoxazole Allergy Hives Verified 07/04/18 10:32 [From Bactrim] trimethoprim [From Bactrim] Allergy Hives Verified 07/04/18 10:32 Date of admission: 06/25/19 14:49 Primary care physician: Lidia Mccann CNP Consults: 06/24/19 20:42 Consult to Cardiac Rehabilitation-Phase1 [CONS] Routine Comment: Reason for Consult: post op PCI Call Completed: Yes Discharging clinician: Lisseth Rebolledo Anticipated date of discharge: 06/27/19 Physical Examination Vital Signs, Last 4 Hours Temp Pulse Resp BP Pulse Ox 06/27/19 07:43 98.7 F 66 16 121/79 93 General: Conversant, No Apparent Distress HEENT: Atraumatic, Normocephaly, Mucus Membranes Moist Neck: No JVD, Normal carotid pulses Cardiac: Reg Rate and Rhythm, Normal S1 and S2, No Murmur Lungs: Normal Breath Sounds, No Wheeze, Rales, Rhonchi Neuro: Alert and responsive, No focal deficits noted Abdomen: Soft, Non-Tender Skin: No rashes noted on visualized skin, Other (Right groin access site without ecchymosis or hematoma. ) Musculoskeletal: No Chest Wall Tenderness Extremities: No Clubbing, No Cyanosis, No Edema, Normal Pulses - Patient Status Disposition: Home, Self-Care Condition: Good Functional capacity at discharge: independent ambulation Overall status at discharge: patient is progressing back to baseline - Discharge Instructions Follow Up With: Lidia Mccann, PM [facility] [Primary Care Provider] - Additional Instructions: RISK FACTORS: STOP SMOKING: If you smoke, STOP. Smoking or tobacco use significantly increases your risk of heart disease because nicotine causes the arteries to narrow or constrict. It also causes fats to stick to the artery. Your chances of having a heart attack are greatly increased if you continue to smoke. For more information, call the education line for smoking cessation 6-933-SOPGELO EAT A LOW FAT/CHOLESTEROL/SODIUM DIET: This diet may help reduce your chances of having a heart attack. LIFTING: Avoid lifting anything more than 10 pounds for 5-7 days Prior to straining, laughing, sneezing and/or coughing, apply manual pressure directly over insertion site. ACTIVITY: You may walk or climb stairs as tolerated You can resume sexual activity as tolerated In general, you are encouraged to engage in a minimum of 30 minutes or more of moderate intensity physical activity, such as brisk walking, daily or at least 3-4 times weekly BATHING Do not submerge the site into water (bath tub, hot tub, swimming pool) for 1 week. This can be a source for infection into the blood stream. You may shower after 24 hours SITE CARE: After 24 hours, you may remove the dressing and leave the site open to air. Keep the site clean and dry. Clean gently and pat dry. You can expect bruising and tenderness that gradually resolve within a week or two. Return to work as instructed per your physician Resume driving as instructed per physician Keep all scheduled follow up appointments Resume medications as instructed IMPORTANT: If prescribed a Platelet Aggregation Inhibitor such as, Plavix, Brilinta or Effient: Duration of therapy is minimum one year These medications are often used in combination with Aspirin in prevention of future heart attacks Never discontinue unless consult with your Accounting Lecturer STROKE (CVA) Risk factors for a stroke are: Age, cigarette smoking, diabetes, excessive alcohol consumption, family history, high blood pressure, overweight, physical inactivity, prior stroke, heart attack, diagnosis of carotid artery stenosis or other artery disease. Warning signs: Sudden numbness or weakness of the face, arm or leg; especially on one side of the body, sudden confusion, trouble speaking or understanding, sudden trouble seeing in one or both eyes, sudden trouble walking, dizziness, loss of balance or coordination, sudden severe headache with no cause. Call 911 or go to the Emergency Room. CONGESTIVE HEART FAILURE: If you have been diagnosed with Congestive Heart Failure (CHF) and your symptoms return, make an appointment with your physician Weigh yourself daily. Notify your physician if you have a weight gain of two or more pounds in one day or five or more pounds in one week. If you experience any difficulty breathing, please call 911 BLEEDING: Although the risk of bleeding is minimal, it can happen. If you have any bleeding from the site, apply firm pressure above the puncture site for 10-15 minutes. If the bleeding does not stop, continue manual pressure and call 911 CARDIAC REHABILITATION: If you have had a heart attack or cardiac stents placed, please ask your stroke program coordinator if Cardiac Rehabilitation is right for you. Cardiac Rehabilitation is recommended, beneficial to your health and can improve the following: strengthen your heart, improve ejection fraction, weight reduction, decrease cholesterol levels, lower blood pressure, lower blood sugar, improve stamina and enhance self-image. If you have any questions please call [facility] at [phone]. Contact your physician if: You develop a fever greater than 101 degrees Fahrenheit Your site becomes reddened or has any drainage You have an increase in pain or burning at the site or if a large knot forms at the site. If you experience chest pain, shortness of breath, dizziness, or extreme tiredness, stop the activity and rest. Please notify your physicians office if you experience any of these symptoms and they are not relieved by rest please call 911! - Diet and Activity Activity: increase activity as tolerated (Follow restrictions as above. ) Diet: low fat, low cholesterol, low salt diet Cardiac Rehab - Cardiac Rehab Cardiac Rehab: Phase I consult completed. Patient was educated on why Cardiac Rehabilitation is beneficial to his/her health. Participating in a cardiac rehabilitation can improve the following: strengthen your heart, improve ejection fraction, weight reduction, decrease cholesterol levels, lower blood pressure, lower blood sugar, improve stamina, and enhance self-image. If he/she has any questions, they were instructed to call [facility] at [phone].
[2019-06-27 11:33] VITALS: BP 121/74
--- NOTE | 2019-06-27 12:02 | Electrocardiograph Report ---
[place] [address] Test Date: 2019-06-24 Pat Name: Debra Magana Department: 104 Room: 2A22 Gender: Financial Services Technician: Aw : 1950 Requested By: Dinesh Higgins Order Number: [id number] Reading MD: Dixon Ballard Measurements Intervals [place] Rate: 70 P: 81 SC: 173 QRS: 270 QRSD: 138 T: 99 QT: 422 QTc: 442 Interpretive Statements SINUS RHYTHM INTRAVENTRICULAR CONDUCTION DELAY Left ventricular hypertrophy ANTEROLATERAL MYOCARDIAL INFARCTION, POSSIBLY ACUTE Electronically Signed On 06-27-2019 12:01:19 EDT by Dixon Ballard
== END 2019-06-27 12:05 | disposition home or self-care (01) | DRG 246 ==
LOC: ICNU 18:45 → EMEROOARM 18:45 → ICNU 19:44 → 2ANU 06-25 15:40
PROVIDERS: ADMIT Internal Medicine Cardiovascular Disease; ATTEND Internal Medicine Cardiovascular Disease

== ENCOUNTER 2021-07-02 14:18 | Inpatient (IN) ==
[2021-07-02] MEDS ORDERED: 0.9 % Sodium Chloride 1,000 ML IVC ONE (15:33)
[2021-07-02 16:05] LABS: VBG HCO3 31 mEq/L (21-27); VBG PCO2 51 mmHg (41-51); VBG PH 7.39 pH Units (7.32-7.42); VBG PO2 45 mmHg (25-50)
[2021-07-02 16:28] LABS: Basophils # 0.1 K/mcL (0.0-0.2); Basophils % 0.7 %; Eosinophils # 0.2 K/mcL (0.0-0.6); Hematocrit 42.9 % (35.3-44.9); Hemoglobin 13.5 g/dL (11.5-15.4); Immature Granulocytes % 0.4 % (0-4); Lymphocytes # 1.6 K/mcL (0.6-4.6); Lymphocytes % 21.1 %; Mean Corpuscular HGB Conc 31.5 g/dL (31.6-35.5); Mean Corpuscular Hemoglobin 27.9 pg (28.0-33.3); Mean Corpuscular Volume 88.6 fL (83.0-100.0); Mean Platelet Volume 9.2 fL (9.4-12.4); Monocytes # 0.6 K/mcL (0.0-1.3); Monocytes % 7.9 %; Platelet Count 421 K/mcL (140-400); Red Blood Count 4.84 M/mcL (3.82-4.97); Red Cell Distribution Width 12.2 % (11.5-14.5); Segmented Neutrophils % 66.9 %; White Blood Count 7.4 K/mcL (4.3-11.1)
[2021-07-02 16:33] LABS: INR 1.1
[2021-07-02 16:35] LABS: Activated Partial Thrombo Time 35.9 Seconds (26.0-36.0)
[2021-07-02 17:09] LABS: Bilirubin,Urine Negative (Negative); Blood,Urine Negative (Negative); Clarity,Urine Clear (Clear); Color,Urine Colorless (Yellow); Glucose,Urine (UA) Normal (Normal); Ketones,Urine Negative (Negative); Leukocyte Esterase,Urine Negative (Negative); Nitrite,Urine Negative (Negative); PH,Urine 6.5 pH Units (5.0-8.0); Protein,Urine Negative (Neg-Trace); Specific Gravity,Urine 1.007 (1.010-1.025); Urobilinogen,Urine Normal (Normal)
[2021-07-02 17:10] LABS: Alanine Aminotransferase 6 Units/L (7-52); Albumin 3.9 g/dL (3.5-5.7); Albumin/Globulin Ratio 1.2 (1.1-2.2); Alkaline Phosphatase 82 Units/L (34-104); Aspartate Amino Transferase 13 Units/L (13-39); BUN/Creatinine Ratio 8 (6-26); Bilirubin,Direct 0.1 mg/dL (0.0-0.2); Bilirubin,Indirect 0.3 mg/dL (0.0-1.0); Bilirubin,Total 0.4 mg/dL (0.3-1.0); Blood Urea Nitrogen 5 mg/dL (8-23); Calcium 9.5 mg/dL (8.6-10.3); Carbon Dioxide 33 mEq/L (23-29); Chloride 99 mEq/L (98-107); Creatine Kinase 33 Units/L (30-223); Ethanol < 10 mg/dL (Less than 10); Globulin 3.3 g/dL (2.4-3.5); Glucose 75 mg/dL (70-105); Osmolality,Calculated 280 (280-300); Potassium 3.7 mEq/L (3.5-5.1); Sodium 137 mEq/L (136-145); Total Protein 7.2 g/dL (6.4-8.9); eGFR For African Americans > 60 (> 60); eGFR For Non-African Americans > 60 (> 60)
[2021-07-02 17:11] LABS: Troponin I < 0.03 ng/mL (< 0.04)
[2021-07-02 17:23] LABS: Amphetamine Screen,Urine Negative ng/mL (Cutoff=1000); Barbiturate Screen,Urine Negative ng/mL (Cutoff=200); Benzodiazepines Screen,Urine Negative ng/mL (Cutoff=200); Cannabinoid Screen,Urine Negative ng/mL (Cutoff = 50); Cocaine Screen,Urine Negative ng/mL (Cutoff= 300); Opiate Screen,Urine Negative ng/mL (Cutoff=300); Phencyclidine Screen,Urine Negative ng/mL (Cutoff=25)
[2021-07-02 17:26] LABS: Thyroid Stimulating Hormone 0.997 mcIU/mL (0.340-5.600)
[2021-07-02] MEDS ORDERED: Perflutren Lipid Microsphere 1.3 ML in 0.9 % Sodium Chloride 8.7 ML IVP PRN (19:45)
[2021-07-02] MEDS ORDERED: *HR* Metoprolol 5 MG/5 ML VIAL IVP PRN (20:14)
[2021-07-02] MEDS: Melatonin 3 MG TABLET PO SCH (21:14)
[2021-07-03] MEDS ORDERED: *HR* Heparin 5,000 UNIT/ML VIAL SQ SCH (06:00)
[2021-07-03 07:00] LABS: Basophils # 0.1 K/mcL (0.0-0.2); Basophils % 0.9 %; Eosinophils # 0.3 K/mcL (0.0-0.6); Eosinophils % 5.1 %; Hematocrit 37.2 % (35.3-44.9); Immature Granulocytes % 0.1 % (0-4); Lymphocytes # 2.1 K/mcL (0.6-4.6); Lymphocytes % 30.9 %; Mean Corpuscular HGB Conc 31.7 g/dL (31.6-35.5); Mean Corpuscular Volume 88.2 fL (83.0-100.0); Mean Platelet Volume 9.1 fL (9.4-12.4); Monocytes # 0.7 K/mcL (0.0-1.3); Monocytes % 10.4 %; Neutrophils # 3.5 K/mcL (1.6-8.9); Platelet Count 336 K/mcL (140-400); Red Blood Count 4.22 M/mcL (3.82-4.97); Red Cell Distribution Width 12.2 % (11.5-14.5); Segmented Neutrophils % 52.6 %; White Blood Count 6.7 K/mcL (4.3-11.1)
[2021-07-03 07:01] LABS: Hemoglobin 11.8 g/dL (11.5-15.4)
[2021-07-03 07:08] LABS: INR 1.1; Prothrombin Time 11.7 Seconds (9.4-12.1)
[2021-07-03 07:23] LABS: Alanine Aminotransferase 4 Units/L (7-52); Albumin 3.3 g/dL (3.5-5.7); Albumin/Globulin Ratio 1.3 (1.1-2.2); Alkaline Phosphatase 68 Units/L (34-104); Aspartate Amino Transferase 11 Units/L (13-39); BUN/Creatinine Ratio 15 (6-26); Bilirubin,Total 0.3 mg/dL (0.3-1.0); Blood Urea Nitrogen 8 mg/dL (8-23); Calcium 8.8 mg/dL (8.6-10.3); Carbon Dioxide 27 mEq/L (23-29); Chloride 103 mEq/L (98-107); Chol/HDL Ratio 3.9 (0-4.9); Cholesterol 122 mg/dL (< 200); Globulin 2.6 g/dL (2.4-3.5); Glucose 93 mg/dL (70-105); HDL Cholesterol 31 mg/dL (40-59); LDL Cholesterol,Calculated 71 mg/dL (< 100); Osmolality,Calculated 280 (280-300); Potassium 3.9 mEq/L (3.5-5.1); Sodium 136 mEq/L (136-145); Total Protein 5.9 g/dL (6.4-8.9); Triglycerides 98 mg/dL (< 150); Troponin I < 0.03 ng/mL (< 0.04); eGFR For African Americans > 60 (> 60); eGFR For Non-African Americans > 60 (> 60)
[2021-07-03] MEDS ORDERED: *HR* LORazepam 0.5 MG TABLET PO ONE (07:54)
[2021-07-03 08:10] LABS: Estimated Average Glucose 123 mg/dl; Hemoglobin A1C 5.9 %
[2021-07-03] MEDS ORDERED: Aspirin Enteric Coated 81 MG Tablet PO SCH (09:00)
[2021-07-03] MEDS: cefTRIAXone 2,000 MG in 0.9 % Sodium Chloride Mini Bag 100 ML IVPB SCH (14:47)
[2021-07-03] MEDS: Ampicillin 2,000 MG in 0.9 % Sodium Chloride Mini Bag 100 ML IVPB SCH ×2 (17:02→20:11)
[2021-07-03] MEDS: Acyclovir 500 MG in D5% in Water 100 ML IVPB SCH (17:02)
[2021-07-03] MEDS: Melatonin 3 MG TABLET PO SCH (20:10)
[2021-07-04] MEDS: Ampicillin 2,000 MG in 0.9 % Sodium Chloride Mini Bag 100 ML IVPB SCH ×7 (00:01→22:50)
[2021-07-04] MEDS: Acyclovir 500 MG in D5% in Water 100 ML IVPB SCH ×4 (00:01→23:23)
[2021-07-04] MEDS: cefTRIAXone 2,000 MG in 0.9 % Sodium Chloride Mini Bag 100 ML IVPB SCH ×2 (01:43→13:53)
[2021-07-04 05:21] LABS: Basophils # 0.1 K/mcL (0.0-0.2); Basophils % 0.8 %; Eosinophils # 0.4 K/mcL (0.0-0.6); Eosinophils % 5.6 %; Hematocrit 34.8 % (35.3-44.9); Hemoglobin 10.9 g/dL (11.5-15.4); Immature Granulocytes % 0.4 % (0-4); Lymphocytes # 1.9 K/mcL (0.6-4.6); Lymphocytes % 27.2 %; Mean Corpuscular HGB Conc 31.3 g/dL (31.6-35.5); Mean Corpuscular Hemoglobin 27.5 pg (28.0-33.3); Mean Corpuscular Volume 87.9 fL (83.0-100.0); Mean Platelet Volume 9.2 fL (9.4-12.4); Monocytes # 0.7 K/mcL (0.0-1.3); Monocytes % 10.1 %; Platelet Count 323 K/mcL (140-400); Red Blood Count 3.96 M/mcL (3.82-4.97); Red Cell Distribution Width 12.1 % (11.5-14.5); Segmented Neutrophils % 55.9 %; White Blood Count 7.1 K/mcL (4.3-11.1)
[2021-07-04 05:37] LABS: BUN/Creatinine Ratio 18 (6-26); Blood Urea Nitrogen 9 mg/dL (8-23); Calcium 8.3 mg/dL (8.6-10.3); Carbon Dioxide 27 mEq/L (23-29); Chloride 106 mEq/L (98-107); Glucose 94 mg/dL (70-105); Osmolality,Calculated 286 (280-300); Potassium 3.7 mEq/L (3.5-5.1); Sodium 139 mEq/L (136-145); eGFR For African Americans > 60 (> 60); eGFR For Non-African Americans > 60 (> 60)
[2021-07-04] MEDS ORDERED: *HR* LORazepam 2 MG/ML VIAL IVP PRN (07:00)
[2021-07-04 09:58] LABS: Appearance,CSF Clear (Clear); Red Blood Cell,CSF < 2000 RBC/mcL
[2021-07-04 10:32] LABS: Glucose,CSF 55 mg/dL (40-70); Total Protein,CSF 40 mg/dL (15-45)
[2021-07-04] MEDS: carvediloL 6.25 MG TABLET PO SCH ×2 (11:59→20:52)
[2021-07-04] MEDS: Melatonin 3 MG TABLET PO SCH (20:41)
[2021-07-05] MEDS: cefTRIAXone 2,000 MG in 0.9 % Sodium Chloride Mini Bag 100 ML IVPB SCH ×2 (01:11→15:38)
[2021-07-05 02:59] LABS: Basophils # 0.1 K/mcL (0.0-0.2); Eosinophils # 0.4 K/mcL (0.0-0.6); Eosinophils % 5.3 %; Hemoglobin 11.9 g/dL (11.5-15.4); Immature Granulocytes % 0.3 % (0-4); Lymphocytes # 2.1 K/mcL (0.6-4.6); Lymphocytes % 28.7 %; Mean Corpuscular HGB Conc 32.2 g/dL (31.6-35.5); Mean Corpuscular Hemoglobin 28.1 pg (28.0-33.3); Mean Corpuscular Volume 87.3 fL (83.0-100.0); Mean Platelet Volume 9.1 fL (9.4-12.4); Monocytes # 0.7 K/mcL (0.0-1.3); Monocytes % 9.7 %; Platelet Count 316 K/mcL (140-400); Red Blood Count 4.24 M/mcL (3.82-4.97); Red Cell Distribution Width 12.3 % (11.5-14.5); White Blood Count 7.2 K/mcL (4.3-11.1)
[2021-07-05] MEDS: Ampicillin 2,000 MG in 0.9 % Sodium Chloride Mini Bag 100 ML IVPB SCH ×3 (03:08→15:38)
[2021-07-05 03:20] LABS: BUN/Creatinine Ratio 16 (6-26); Blood Urea Nitrogen 10 mg/dL (8-23); Calcium 8.7 mg/dL (8.6-10.3); Carbon Dioxide 30 mEq/L (23-29); Chloride 103 mEq/L (98-107); Glucose 98 mg/dL (70-105); Osmolality,Calculated 283 (280-300); Potassium 3.8 mEq/L (3.5-5.1); Sodium 137 mEq/L (136-145); eGFR For African Americans > 60 (> 60); eGFR For Non-African Americans > 60 (> 60)
[2021-07-05] MEDS: Acetaminophen 325 MG TABLET PO PRN ×3 (03:49→20:29)
[2021-07-05] MEDS: carvediloL 6.25 MG TABLET PO SCH ×2 (10:04→17:45)
[2021-07-05] MEDS: Acyclovir 500 MG in D5% in Water 100 ML IVPB SCH (10:52)
[2021-07-05] MEDS ORDERED: *HR* LORazepam 2 MG/ML VIAL IVP ONE (13:09)
[2021-07-05] MEDS: Melatonin 3 MG TABLET PO SCH (20:29)
[2021-07-06 06:20] LABS: Basophils # 0.1 K/mcL (0.0-0.2); Basophils % 1.4 %; Eosinophils # 0.5 K/mcL (0.0-0.6); Eosinophils % 7.8 %; Hematocrit 36.4 % (35.3-44.9); Hemoglobin 11.8 g/dL (11.5-15.4); Immature Granulocytes % 0.2 % (0-4); Lymphocytes % 35.4 %; Mean Corpuscular HGB Conc 32.4 g/dL (31.6-35.5); Mean Corpuscular Hemoglobin 28.3 pg (28.0-33.3); Mean Corpuscular Volume 87.3 fL (83.0-100.0); Mean Platelet Volume 9.3 fL (9.4-12.4); Monocytes # 0.6 K/mcL (0.0-1.3); Monocytes % 10.2 %; Neutrophils # 2.6 K/mcL (1.6-8.9); Platelet Count 323 K/mcL (140-400); Red Blood Count 4.17 M/mcL (3.82-4.97); White Blood Count 5.8 K/mcL (4.3-11.1)
[2021-07-06 06:44] LABS: BUN/Creatinine Ratio 19 (6-26); Blood Urea Nitrogen 9 mg/dL (8-23); Calcium 8.9 mg/dL (8.6-10.3); Carbon Dioxide 30 mEq/L (23-29); Chloride 103 mEq/L (98-107); Glucose 90 mg/dL (70-105); Osmolality,Calculated 284 (280-300); Potassium 3.7 mEq/L (3.5-5.1); Sodium 138 mEq/L (136-145); eGFR For African Americans > 60 (> 60); eGFR For Non-African Americans > 60 (> 60)
[2021-07-06 06:47] VITALS: BP 155/83; PULSE 65; TEMP 97.7; O2SAT 93
[2021-07-06] MEDS: carvediloL 6.25 MG TABLET PO SCH (08:56)
[2021-07-06] MEDS ORDERED: Aspirin Enteric Coated 81 MG Tablet PO SCH (09:00)
[2021-07-06 16:46] LABS: HSV Source CSF
[2021-07-07 10:42] LABS: Borrelia burgdorferi Abs CSF 0.04 LIV (<=0.99)
[2021-07-10 12:40] LABS: Toxoplasma gondii Source CSF
== END 2021-07-06 10:55 | disposition home or self-care (01) | DRG 69 ==
LOC: EMEROOARM 14:18 → 3BNU 14:18 → SUATTDRO 20:03 → 3BNU 21:04
PROVIDERS: ADMIT Family Medicine; ATTEND Internal Medicine